=== PATIENT | male | born 1935 | race Caucasian/White ===

== ENCOUNTER 2017-12-03 21:17 | Inpatient (IN) | payer OTHER, MEDICAID ==
[~2017-12-03] VITALS: Ht 167.6 cm; Wt 54.4 kg
[2017-12-03 21:17] VITALS: BP_SYST 159
[2017-12-03] MEDS ORDERED: ACETAMINOPHEN 500 MG TABLET PO ONE (21:30)
[2017-12-03] MEDS ORDERED: NACL 0.9% 1,000 ML IV ONE ×2 (21:30→22:30)
[2017-12-03] MEDS ORDERED: IPRATROPIUM/ALBUTEROL SULFATE 3 ML AMPUL.NEB INH ONE (21:30)
[2017-12-03 21:44] LABS: HEMATOCRIT 39.2 % (36-54); MEAN CORPUSCULAR HEMOGLOBIN 31 pg (27-31); MEAN CORPUSCULAR HGB CONC 33 % (32-36); MEAN CORPUSCULAR VOLUME 94 fL (79.0-98.0); PLATELET COUNT (AUTO) 261 K/uL (130-430); RED BLOOD CELL COUNT(AUTO) 4.18 MIL/uL (4.2-6.2); RED CELL DISTRIBUTION WIDTH 14.3 % (9.0-15.0); WHITE BLOOD COUNT (AUTO) 10.7 K/uL (4.8-10.8)
[2017-12-03 21:53] LABS: ANION GAP 13 (5-15); CALCIUM 8.7 mg/dL (8.4-11.0); CHLORIDE 101 mmol/L (98-107); CREATININE 1.92 mg/dL (0.55-1.30); GLUCOSE 157 mg/dL (70-99); SODIUM SERUM 135 mmol/L (136-145); UREA NITROGEN, BLOOD 42 mg/dL (8-21)
[2017-12-03 22:02] LABS: ALANINE AMINOTRANSFERASE 10 U/L (12-78); ALBUMIN 2.7 g/dL (3.4-4.8); ASPARTATE AMINOTRANSFERASE 12 U/L (10-37); TOTAL BILIRUBIN 0.9 mg/dL (0.0-1.0)
[2017-12-03 22:08] LABS: BAND % (MANUAL) 5 % (0-6); BASOPHILS % (MANUAL) 0 % (0-2); EOSINOPHILS % (MANUAL) 0 % (0-7); LYMPHOCYTES % (MANUAL) 8 % (20-46); MONOCYTES % (MANUAL) 4 % (0-11)
[2017-12-03] MEDS ORDERED: SIMETHICONE 80 MG TAB.CHEW PO PRN (23:00)
[2017-12-03] MEDS ORDERED: ACETAMINOPHEN 325 MG TABLET PO PRN (23:00)
[2017-12-03] MEDS ORDERED: MORPHINE 2 MG/ML INJ. SYRINGE IVP PRN (23:00)
[2017-12-03] MEDS ORDERED: hydrALAZINE HCL 20 MG/ML VIAL IVP PRN (23:00)
[2017-12-03] MEDS ORDERED: LORazepam 2 MG/ML VIAL IVP PRN (23:00)
[2017-12-03] MEDS ORDERED: HYDROcodone/ACETAMIN 10-325 MG TAB PO PRN (23:00)
[2017-12-03] MEDS ORDERED: PIPERACILLIN/TAZOBACTAM 2.25 GM in NS 50 ML IV ONE (23:00)
[2017-12-03] MEDS ORDERED: ONDANSETRON HCL 4 MG/2 ML VIAL IVP PRN (23:00)
[2017-12-03] MEDS ORDERED: BISACODYL 10 MG/SUPPOSITORY RC PRN (23:00)
[2017-12-03] MEDS ORDERED: POTASSIUM CHLORIDE 20 MEQ TAB.PRT.SR PO PRN (23:00)
[2017-12-03] MEDS ORDERED: IPRATROPIUM/ALBUTEROL SULFATE 3 ML AMPUL.NEB INH PRN (23:00)
[2017-12-03] MEDS ORDERED: ZOLPIDEM TARTRATE 5 MG TABLET PO PRN (23:00)
[2017-12-03 23:13] LABS: BILIRUBIN,URINE 2+ (NEGATIVE); BLOOD, URINE NEGATIVE (NEGATIVE); CLARITY/URINE SLIGHTLY CLOUDY (CLEAR); COLOR,URINE YELLOW (YELLOW); GLUCOSE,URINE NEGATIVE (NEGATIVE); KETONES,URINE TRACE (NEGATIVE); LEUKOCYTE ESTERASE ,URINE NEGATIVE (NEGATIVE); NITRITE, URINE NEGATIVE (NEGATIVE); PH,URINE 5.5 (5.0-8.0); PROTEIN URINE 1+ (NEGATIVE)
[2017-12-03 23:15] LABS: BARBITURATE, URINE NEGATIVE (NEG <=200); BENZODIAZEPINE, URINE NEGATIVE (NEG <=150); CANNABINOID, URINE NEGATIVE (NEG <=50); COCAINE, URINE NEGATIVE (NEG <=150); METHAMPHETAMINES SCREEN,URINE NEGATIVE (NEG <=500); OPIATE, URINE NEGATIVE (NEG <=100); PHENCYCLIDINE SCREEN,URINE NEGATIVE (NEG <=25); UR TRICYCLIC ANTIDEPRESSANTS NEGATIVE (NEG <=300); URINE AMPHETAMINE NEGATIVE (NEG <=500); URINE METHADONE NEGATIVE (NEG <=200); URINE OXYCODONE SCREEN NEGATIVE (NEG <=100); URINE PROPOXYPHENE SCREEN NEGATIVE (NEG <=300)
[2017-12-03 23:16] LABS: BACTERIA,URINE FEW /HPF (None Seen); COARSE GRANULAR CASTS,URINE 0-10 /LPF (None Seen); FINE GRANULAR CASTS,URINE 0-10 /LPF (None Seen); MUCUS,URINE 1+ /LPF (None Seen); RBC,URINE 0-3 /HPF (0-3); URINE AMORPHOUS URATE 4+ /HPF (None Seen)
[2017-12-03 23:31] VITALS: BP_SYST 114
[2017-12-03] MEDS ORDERED: FLU VACC QS 2017-18(36MOS+)/PF 0.5 ML/SYR SYRINGE I.M. PRN (23:45)
[2017-12-04] MEDS: NACL 0.9% 1,000 ML IV SCH ×2 (00:02→10:23)
[2017-12-04] MEDS: IPRATROPIUM/ALBUTEROL SULFATE 3 ML AMPUL.NEB INH SCH ×7 (00:05→23:00)
[2017-12-04 00:23] VITALS: BP_SYST 159
[2017-12-04] MEDS ORDERED: PIPERACILLIN/TAZOBACTAM 2.25 GM VIAL IV ONE (00:43)
[2017-12-04] MEDS: BUDESONIDE 0.5 MG/2 ML AMPUL.NEB INH SCH ×2 (07:00→20:00)
[2017-12-04 07:36] LABS: FREE T4 (FREE THYROXINE) 0.9 ng/dL (0.6-1.6); PHOSPHORUS 2.2 mg/dL (2.7-4.5); THYROID STIMULATING HORMONE 0.55 uIu/mL (0.34-4.82)
[2017-12-04 08:00] VITALS: BP_SYST 130
[2017-12-04] MEDS: DOCUSATE SODIUM 100 MG CAPSULE PO SCH ×3 (08:12→20:14)
[2017-12-04] MEDS ORDERED: AZITHROMYCIN 250 MG TABLET PO ONE (10:45)
[2017-12-04] MEDS ORDERED: cefTRIAXone 1 GM in D5W 50 ML IV ONE (11:00)
[2017-12-04] MEDS ORDERED: BENZOCAINE/MENTHOL 1 EACH LOZENGE MM PRN (11:00)
[2017-12-04 11:20] VITALS: BP_SYST 111
[2017-12-04 15:21] VITALS: BP_SYST 103
[2017-12-04 20:10] VITALS: BP_SYST 131
[2017-12-05 00:01] VITALS: BP_SYST 133
[2017-12-05] MEDS: IPRATROPIUM/ALBUTEROL SULFATE 3 ML AMPUL.NEB INH SCH ×6 (03:00→23:05)
[2017-12-05 05:06] LABS: T4 (THYROXINE) 5.1 ug/dL (4.5-12.0)
[2017-12-05 06:18] LABS: HEMOGLOBIN A1C 5.2 % (4.8-5.6)
[2017-12-05 06:40] LABS: HEMATOCRIT 33.4 % (36-54); HEMOGLOBIN 11.1 g/dL (14.0-18.0); MEAN CORPUSCULAR HEMOGLOBIN 32 pg (27-31); MEAN CORPUSCULAR HGB CONC 33 % (32-36); MEAN CORPUSCULAR VOLUME 95 fL (79.0-98.0); PLATELET COUNT (AUTO) 282 K/uL (130-430); RED CELL DISTRIBUTION WIDTH 14.8 % (9.0-15.0); WHITE BLOOD COUNT (AUTO) 11.4 K/uL (4.8-10.8)
[2017-12-05] MEDS: BUDESONIDE 0.5 MG/2 ML AMPUL.NEB INH SCH ×2 (07:00→20:19)
[2017-12-05 07:01] LABS: ALANINE AMINOTRANSFERASE 11 U/L (12-78); ALBUMIN 2.2 g/dL (3.4-4.8); ANION GAP 10 (5-15); ASPARTATE AMINOTRANSFERASE 15 U/L (10-37); CALCIUM 8.7 mg/dL (8.4-11.0); CHLORIDE 107 mmol/L (98-107); CREATININE 1.42 mg/dL (0.55-1.30); GLUCOSE 95 mg/dL (70-99); PHOSPHORUS 2.9 mg/dL (2.7-4.5); POTASSIUM 3.4 mmol/L (3.5-5.1); SODIUM SERUM 139 mmol/L (136-145); TOTAL BILIRUBIN 0.5 mg/dL (0.0-1.0); UREA NITROGEN, BLOOD 29 mg/dL (8-21)
[2017-12-05] MEDS: AZITHROMYCIN 250 MG TABLET PO SCH (08:25)
[2017-12-05] MEDS: DOCUSATE SODIUM 100 MG CAPSULE PO SCH ×2 (08:27→20:35)
[2017-12-05] MEDS: cefTRIAXone 1 GM in D5W 50 ML IV SCH (08:27)
[2017-12-05 09:12] LABS: BAND % (MANUAL) 3 % (0-6); LYMPHOCYTES % (MANUAL) 10 % (20-46); MONOCYTES % (MANUAL) 8 % (0-11)
[2017-12-05 09:13] LABS: BASOPHILS % (MANUAL) 0 % (0-2); EOSINOPHILS % (MANUAL) 1 % (0-7)
[2017-12-05 09:48] VITALS: BP_SYST 114
[2017-12-05] MEDS ORDERED: POTASSIUM CHLORIDE 10 MEQ TAB.PRT.SR PO ONE (11:00)
[2017-12-05 12:37] VITALS: BP_SYST 121
[2017-12-05 16:08] VITALS: BP_SYST 148
[2017-12-05 20:00] VITALS: BP_SYST 138
[2017-12-06 00:27] VITALS: BP_SYST 137
[2017-12-06 06:49] LABS: BASOPHILS % (AUTO) 0.2 % (0.0-2.0); EOSINOPHILS # (AUTO) 0.3 K/uL (0.0-0.4); EOSINOPHILS % (AUTO) 2.5 % (0.0-4.0); HEMATOCRIT 33.9 % (36-54); HEMOGLOBIN 11.2 g/dL (14.0-18.0); LYMPHOCYTES % (AUTO) 9.8 % (20.5-51.5); MEAN CORPUSCULAR HEMOGLOBIN 32 pg (27-31); MEAN CORPUSCULAR HGB CONC 33 % (32-36); MEAN CORPUSCULAR VOLUME 96 fL (79.0-98.0); MONOCYTES # (AUTO) 0.8 K/uL (0.0-1.0); MONOCYTES % (AUTO) 7.8 % (1.7-9.3); NEUTROPHILS # (AUTO) 8.4 K/uL (1.8-7.7); NEUTROPHILS % (AUTO) 79.7 % (40.0-70.0); PLATELET COUNT (AUTO) 359 K/uL (130-430); RED BLOOD CELL COUNT(AUTO) 3.54 MIL/uL (4.2-6.2); RED CELL DISTRIBUTION WIDTH 14.7 % (9.0-15.0); WHITE BLOOD COUNT (AUTO) 10.5 K/uL (4.8-10.8)
[2017-12-06 07:07] LABS: ANION GAP 9 (5-15); CALCIUM 8.9 mg/dL (8.4-11.0); CHLORIDE 109 mmol/L (98-107); GLUCOSE 110 mg/dL (70-99); POTASSIUM 3.4 mmol/L (3.5-5.1); SODIUM SERUM 143 mmol/L (136-145); UREA NITROGEN, BLOOD 22 mg/dL (8-21)
[2017-12-06] MEDS: BUDESONIDE 0.5 MG/2 ML AMPUL.NEB INH SCH (07:11)
[2017-12-06] MEDS: IPRATROPIUM/ALBUTEROL SULFATE 3 ML AMPUL.NEB INH SCH ×2 (07:11→11:29)
[2017-12-06] MEDS: cefTRIAXone 1 GM in D5W 50 ML IV SCH (08:33)
[2017-12-06] MEDS: DOCUSATE SODIUM 100 MG CAPSULE PO SCH (08:33)
[2017-12-06] MEDS: AZITHROMYCIN 250 MG TABLET PO SCH (08:34)
[2017-12-06 09:48] VITALS: BP_SYST 130
[2017-12-06 11:40] VITALS: BP_SYST 166
[2017-12-06 11:44] VITALS: BP_SYST 141
[2017-12-06] MEDS ORDERED: ALBU8.5H8 INH (12:53)
[2017-12-06] MEDS ORDERED: LEVO500T20 PO (12:53)
[2017-12-06 15:17] VITALS: BP_SYST 141
== END 2017-12-06 15:45 | disposition home or self-care (01) | DRG 871 ==
LOC: SED 21:17 → SMU 22:51
PROVIDERS: ADMIT Family Medicine; ATTEND Family Medicine
DX: A41.9 Sepsis, unspecified organism (principal); N17.0 Acute kidney failure with tubular necrosis; J18.9 Pneumonia, unspecified organism; J44.0 Chronic obstructive pulmonary disease with (acute) lower respiratory infection; J44.1 Chronic obstructive pulmonary disease with (acute) exacerbation; N39.0 Urinary tract infection, site not specified; E78.5 Hyperlipidemia, unspecified; I10 Essential (primary) hypertension; F17.210 Nicotine dependence, cigarettes, uncomplicated; Z98.42 Cataract extraction status, left eye; Z98.41 Cataract extraction status, right eye
CPT/HCPCS: 36415; 71045; 80048; 80053; 80061; 80307; 81000-TC; 82150-TC; 83036; 83605; 83690-TC; 83735-TC; 83880; 84100-TC; 84436; 84439; 84443-TC; 84479; 84484; 85007; 85025; 85027; 86710; 87040-TC; 93005; 94640; 94760; 96361; 96365; 97530-GP; 99285; J0696; J1956; J2543; J7030; J7060; Q0144; Q2037

== ENCOUNTER 2021-04-19 01:16 | Inpatient (IN) | payer OTHER, MEDICAID, SELFPAY ==
[2021-04-19] VITALS (12 sets, daily range): BP systolic 136–172
[~2021-04-19] VITALS: Ht 167.6 cm; Wt 50.9 kg
[~2021-04-19 01:16] MED LIST: ALBU8.5H8 INH; LEVO500T20 PO
--- NOTE | 2021-04-19 01:16 | NUR ---
Placed in room 1. Placed on secured entrance monitor, blood pressure machine and pulse oximeter. To gown for exam. Side rails up. Cervical collar placed in ER. Report given to self. ER Dr. Colon at bedside examining patient.
--- NOTE | 2021-04-19 01:23 | NUR ---
EKG performed at by Prateek Bal RN. Physician given copy of EKG for review.
--- NOTE | 2021-04-19 01:25 | NUR ---
Per MD Colon EKG reveals "Complete Bundle Branch Block" paced pads placed.
--- NOTE | 2021-04-19 01:36 | NUR ---
# 18 gauge angiocath placed to RAC. Use of asceptic technique. Opsite placed over site. Blood return noted. Blood for lab drawn from site. Flushed with 10 cc of normal saline. No evidence of infiltration noted. Patient tolerated well. Patient had arrived via EMS w/ 18 g to LAC (patent and intact).
[2021-04-19 01:51] LABS: BASOPHILS # (AUTO) 0.1 K/uL (0.0-0.2); BASOPHILS % (AUTO) 0.9 % (0.0-2.0); EOSINOPHILS # (AUTO) 0.1 K/uL (0.0-0.4); EOSINOPHILS % (AUTO) 0.9 % (0.0-4.0); HEMATOCRIT 36.6 % (36-54); HEMOGLOBIN 12.1 g/dL (14.0-18.0); LYMPHOCYTES # (AUTO) 1.3 K/uL (1.0-5.5); LYMPHOCYTES % (AUTO) 12.9 % (20.5-51.5); MEAN CORPUSCULAR HEMOGLOBIN 32 pg (27-31); MEAN CORPUSCULAR HGB CONC 33 % (32-36); MEAN CORPUSCULAR VOLUME 96 fL (79.0-98.0); MONOCYTES # (AUTO) 0.5 K/uL (0.0-1.0); MONOCYTES % (AUTO) 5.4 % (1.7-9.3); NEUTROPHILS # (AUTO) 7.8 K/uL (1.8-7.7); NEUTROPHILS % (AUTO) 79.9 % (40.0-70.0); PLATELET COUNT (AUTO) 192 K/uL (130-430); RED BLOOD CELL COUNT(AUTO) 3.81 MIL/uL (4.2-6.2); RED CELL DISTRIBUTION WIDTH 20.6 % (9.0-15.0); WHITE BLOOD COUNT (AUTO) 9.7 K/uL (4.8-10.8)
[2021-04-19 02:02] LABS: ANION GAP 15 (5-15); CALCIUM 8.7 mg/dL (8.4-11.0); CHLORIDE 109 mmol/L (98-107); CREATININE 1.83 mg/dL (0.55-1.30); GLUCOSE 131 mg/dL (70-99); POTASSIUM 4.3 mmol/L (3.5-5.1); SODIUM SERUM 146 mmol/L (136-145); UREA NITROGEN, BLOOD 23 mg/dL (8-21)
[2021-04-19 02:05] LABS: PROTHROMBIN TIME 10.6 SECS (9.5-12.5)
[2021-04-19 02:07] LABS: ASPARTATE AMINOTRANSFERASE 23 U/L (10-37); TOTAL BILIRUBIN 1.1 mg/dL (0.0-1.0)
[2021-04-19 02:21] LABS: ALANINE AMINOTRANSFERASE 24 U/L (12-78); ALBUMIN 3.9 g/dL (3.4-4.8)
[2021-04-19 02:22] LABS: ALCOHOL, BLOOD < 3 mg/dL (<10)
--- NOTE | 2021-04-19 02:25 | NUR ---
Patient transported to radiology/CT via [facility] w/ account planner, accompanied by RN and CT.
--- NOTE | 2021-04-19 02:51 | NUR ---
Returned from radiology, back to [facility]. Reconnected to traffic monitor specialist. Patient resting quietly. No acute distress noted. Vital signs within normal range. Continue to monitor level of comfort.
--- NOTE | 2021-04-19 03:26 | NUR ---
pcxr done at bedside.
[2021-04-19] MEDS ORDERED: cefTRIAXone 1 GM VIAL ONE (04:29)
[2021-04-19] MEDS ORDERED: DIPH-TET-PERTUS Vaccine 0.5 ML VIAL (ADACEL) I.M. ONE (04:30)
[2021-04-19] MEDS ORDERED: hydrALAZINE HCL 20 MG/ML VIAL IVP ONE (04:30)
[2021-04-19] MEDS ORDERED: cefTRIAXone 1 GM in D5W 50 ML IV ONE (04:30)
--- NOTE | 2021-04-19 04:30 | NUR ---
Patient has a 1 cm laceration to occipital scalp. Dr. Colno applied aure using sterile technique. Edges well approximated. Site cleansed with sterile wated and betadine. no bleeding, no Dressing of applied to site. No bleeding noted. Pt tolerated well.
--- NOTE | 2021-04-19 04:41 | NUR ---
Medicated w/ tetanus im, hydralazine 10mg ivp for elevated b/p and rocephin 1gm ivpb per MD orders. no s/s of infiltration at this time at iv sites. Will cont to monitor and observe for any adverse reaction. Bed to low position sr up. continue to monitor.
[2021-04-19 05:11] LABS: BILIRUBIN,URINE NEGATIVE (NEGATIVE); BLOOD, URINE 1+ (NEGATIVE); CLARITY/URINE CLEAR (CLEAR); COLOR,URINE YELLOW (YELLOW); GLUCOSE,URINE NEGATIVE (NEGATIVE); KETONES,URINE NEGATIVE (NEGATIVE); LEUKOCYTE ESTERASE ,URINE NEGATIVE (NEGATIVE); NITRITE, URINE NEGATIVE (NEGATIVE); PROTEIN URINE 1+ (NEGATIVE); UROBILINOGEN,URINE 0.2 (0.2-1.0)
[2021-04-19 05:13] LABS: BACTERIA,URINE FEW /HPF (None Seen); WBC,URINE 0-3 /HPF (0-3)
[2021-04-19 05:20] LABS: BARBITURATE, URINE NEGATIVE (NEG <=200); BENZODIAZEPINE, URINE NEGATIVE (NEG <=150); CANNABINOID, URINE NEGATIVE (NEG <=50); COCAINE, URINE NEGATIVE (NEG <=150); METHAMPHETAMINES SCREEN,URINE NEGATIVE (NEG <=500); OPIATE, URINE NEGATIVE (NEG <=100); PHENCYCLIDINE SCREEN,URINE NEGATIVE (NEG <=25); UR TRICYCLIC ANTIDEPRESSANTS NEGATIVE (NEG <=300); URINE AMPHETAMINE NEGATIVE (NEG <=500); URINE METHADONE NEGATIVE (NEG <=200); URINE OXYCODONE SCREEN NEGATIVE (NEG <=100); URINE PROPOXYPHENE SCREEN NEGATIVE (NEG <=300)
[2021-04-19] MEDS ORDERED: BACITRACIN 1 GM OINT TP ONE (05:21)
[2021-04-19] MEDS ORDERED: LORazepam 2 MG/ML VIAL ONE (05:43)
--- NOTE | 2021-04-19 05:45 | NUR ---
patient w/ increased agitation and restlessness. Per MD patient to be medicated w/ ativan 1mg ivp. Medicated per MD orders. Will cont to monitor and observe for any adverse reaction. Bed to low position sr up. continue to monitor.
--- NOTE | 2021-04-19 06:35 | NUR ---
Patient resting quietly. No acute distress noted. Vital signs within normal range.
--- NOTE | 2021-04-19 07:21 | NUR ---
Dr. Schneider in to see patient.
[2021-04-19] MEDS ORDERED: NACL 0.9% 1,000 ML IV SCH (07:45)
[2021-04-19] MEDS ORDERED: ACETAMINOPHEN 325 MG TABLET PO PRN ×2 (07:45→08:00)
--- NOTE | 2021-04-19 08:06 | NUR ---
ASSUMED CARE FOR PATIENT FROM MICHAEL CINTRON
[2021-04-19] MEDS ORDERED: LORazepam 2 MG/ML VIAL IVP ONE (08:15)
--- NOTE | 2021-04-19 08:20 | NUR ---
PT REMOVED HIS RIGHT #18 RIGHT AC IV ACCESS
--- NOTE | 2021-04-19 08:20 | NUR ---
Dr. Burns in to see patient.
--- NOTE | 2021-04-19 08:30 | NUR ---
CONSULT CARDIO. CONSULTING MD: DR. THACKER PERSON NOTIFIED: DR. THACKER ORDERED BY: DR. DOZIER
--- NOTE | 2021-04-19 08:30 | NUR ---
CONSULT PULMO. CONSULTING MD: DR. RYAN PERSON NOTIFIED: DR. RYAN ORDERED BY: DR. DOZIER
[2021-04-19 09:44] LABS: BASOPHILS # (AUTO) 0.1 K/uL (0.0-0.2); BASOPHILS % (AUTO) 1.1 % (0.0-2.0); EOSINOPHILS # (AUTO) 0.1 K/uL (0.0-0.4); EOSINOPHILS % (AUTO) 0.6 % (0.0-4.0); HEMATOCRIT 34.4 % (36-54); HEMOGLOBIN 11.5 g/dL (14.0-18.0); LYMPHOCYTES # (AUTO) 1.1 K/uL (1.0-5.5); LYMPHOCYTES % (AUTO) 12.3 % (20.5-51.5); MEAN CORPUSCULAR HEMOGLOBIN 31 pg (27-31); MEAN CORPUSCULAR HGB CONC 33 % (32-36); MEAN CORPUSCULAR VOLUME 94 fL (79.0-98.0); MONOCYTES # (AUTO) 0.7 K/uL (0.0-1.0); NEUTROPHILS # (AUTO) 7.1 K/uL (1.8-7.7); PLATELET COUNT (AUTO) 164 K/uL (130-430); RED BLOOD CELL COUNT(AUTO) 3.68 MIL/uL (4.2-6.2); RED CELL DISTRIBUTION WIDTH 20.3 % (9.0-15.0); WHITE BLOOD COUNT (AUTO) 9.1 K/uL (4.8-10.8)
[2021-04-19 10:09] LABS: ALANINE AMINOTRANSFERASE 21 U/L (12-78); ALBUMIN 3.3 g/dL (3.4-4.8); ANION GAP 13 (5-15); ASPARTATE AMINOTRANSFERASE 21 U/L (10-37); CALCIUM 8.4 mg/dL (8.4-11.0); CHLORIDE 110 mmol/L (98-107); CREATININE 1.62 mg/dL (0.55-1.30); GLUCOSE 105 mg/dL (70-99); SODIUM SERUM 146 mmol/L (136-145); TOTAL BILIRUBIN 1.1 mg/dL (0.0-1.0); UREA NITROGEN, BLOOD 22 mg/dL (8-21)
[2021-04-19] MEDS: NACL 0.9% 1,000 ML IV SCH ×2 (12:10→20:47)
--- NOTE | 2021-04-19 13:50 | NUR ---
Transfer to ICU4 via ACLS protocol. Licensed nurse present. IV present no signs or symptoms of infiltration.
--- NOTE | 2021-04-19 14:00 | NUR ---
ADMISSION NOTE RECEIVED PT VIA RINKU, LETHARGIC, TRANSFERRED TO THE BED, ON ROOM AIR, CONNECTED PT TO BARREL ENDSHAKE ADJUSTER, 3RD DEGREE HEART BLOCK, SALINE LOCK IN LEFT A/C, AND IV IN LEFT ARM, WITH NS INFUSING. PT INCONTINENT, GOOD PERINEAL CARE DONE, SHEETS CHANGED. RIGHT ELBOW SKIN TEAR AND SCALP WITH STAPLE WIRES.
--- NOTE | 2021-04-19 14:30 | NUR ---
CONSULT NEPHRO. CONSULTING MD: DR. MORALES PERSON NOTIFIED: VIRA DIALED: [phone] ORDERED BY: DR. DOZIER
[2021-04-19] MEDS: DOPamine PREMIX 250 ML IV PRN (15:29)
--- NOTE | 2021-04-19 18:30 | NUR ---
YOUNG CATH: # 16 FR Young catheter with 10 cc bulb inserted with use of sterile technique. Bulb inflated with 10 cc sterile water. Immediate return of 50 cc urine noted. Bedside drainage bag placed below level of bladder. Pt tolerated procedure well.
--- NOTE | 2021-04-19 19:30 | NUR ---
Opening Note Received report from AM shift using SBAR approach.
--- NOTE | 2021-04-19 19:55 | NUR ---
PAGED FOR ORDERS DIALED: [phone] SPOKE TO: JOSE
[2021-04-19] MEDS ORDERED: cefTRIAXone 1 GM IVPB PREMIX 50 ML IV ONE (21:14)
[2021-04-19] MEDS: cefTRIAXone 1 GM IVPB PREMIX 50 ML IV SCH ×2 (21:27→21:40)
--- NOTE | 2021-04-19 22:30 | NUR ---
patient is pulling out lines and getting restless.
--- NOTE | 2021-04-19 23:22 | NUR ---
Called Dr. Schneider and reported patient's condition. Restraints ordered.
[2021-04-20] VITALS (24 sets, daily range): BP systolic 132–168
[2021-04-20] MEDS: NACL 0.9% 1,000 ML IV SCH ×2 (03:57→15:03)
--- NOTE | 2021-04-20 06:34 | NUR ---
Nutrition Update Parviz Scale 12 noted. Pt admitted for Heart block Diet: Clear liquid BMI: 17.6 kg/m2 RD to follow per nutrition care standards.
[2021-04-20 06:39] LABS: BASOPHILS # (AUTO) 0.1 K/uL (0.0-0.2); BASOPHILS % (AUTO) 0.4 % (0.0-2.0); HEMOGLOBIN 11.7 g/dL (14.0-18.0); LYMPHOCYTES # (AUTO) 0.8 K/uL (1.0-5.5); LYMPHOCYTES % (AUTO) 6.5 % (20.5-51.5); MEAN CORPUSCULAR HEMOGLOBIN 32 pg (27-31); MEAN CORPUSCULAR HGB CONC 34 % (32-36); MEAN CORPUSCULAR VOLUME 94 fL (79.0-98.0); MONOCYTES # (AUTO) 0.8 K/uL (0.0-1.0); NEUTROPHILS # (AUTO) 10.4 K/uL (1.8-7.7); NEUTROPHILS % (AUTO) 86.1 % (40.0-70.0); PLATELET COUNT (AUTO) 165 K/uL (130-430); RED BLOOD CELL COUNT(AUTO) 3.71 MIL/uL (4.2-6.2); RED CELL DISTRIBUTION WIDTH 20.2 % (9.0-15.0)
[2021-04-20 06:40] LABS: ALANINE AMINOTRANSFERASE 18 U/L (12-78); ALBUMIN 3.2 g/dL (3.4-4.8); ANION GAP 14 (5-15); ASPARTATE AMINOTRANSFERASE 31 U/L (10-37); CALCIUM 8.3 mg/dL (8.4-11.0); CHLORIDE 109 mmol/L (98-107); CREATININE 1.49 mg/dL (0.55-1.30); GLUCOSE 112 mg/dL (70-99); POTASSIUM 3.6 mmol/L (3.5-5.1); SODIUM SERUM 143 mmol/L (136-145); TOTAL BILIRUBIN 0.9 mg/dL (0.0-1.0); UREA NITROGEN, BLOOD 21 mg/dL (8-21)
[2021-04-20 06:48] LABS: WHITE BLOOD COUNT (AUTO) 12.1 K/uL (4.8-10.8)
--- NOTE | 2021-04-20 12:08 | NUR ---
SS notes CAMPUS MANAGER received a referral from Dr. Schneider to see pt. . Pt was found face down on the sidewalk. Pt. may reside in a motel and could be homeless. Pt. also needs a Picc and it is unknown who the next of kin is. CAMPUS MANAGER called the listed emergency contact for dorene Seeer, , but the phone just kept ringing. CAMPUS MANAGER called the number listed under patients listed address, , but phone just kept ringing. Addendum: 04/20/21 at 1246 by Darlyn TEAGUE SS notes CAMPUS MANAGER received a call back from the brothers, phone number, but it was from a woman, Nya Rivera who stated this is her phone number, she does not know any Jack Bocanegra. CAMPUS MANAGER called HCP, Demetria who stated pt. has Dr. Casas as the PCP, [phone]. CAMPUS MANAGER called and left a message with the Drs. oquendo in hopes of finding a next of kin, contact. CAMPUS MANAGER will continue to try. Addendum: 04/20/21 at 1441 by Darlyn C. Urban CAMPUS MANAGER SS notes CAMPUS MANAGER was able to reach electrician third at Dr. Casas's office. CAMPUS MANAGER stated since HCP listed Dr. Bey as the PCP, might they have any contacts. Loading Shovel Oiler stated although Dr. Bey is listed as PCP, they have not ever seen this pt. This pt. has never made appointments. They did have one contact listed, Charles Vanegas, . CAMPUS MANAGER called this number twice, no answer and unable to leave a message due to the mailbox being full. CAMPUS MANAGER will continue to try reaching out.
[2021-04-20 12:35] LABS: INR 1.1 (0.80-1.20); PROTHROMBIN TIME 11.6 SECS (9.5-12.5)
[2021-04-20] MEDS: hydrALAZINE HCL 20 MG/ML VIAL IVP PRN ×2 (15:03→23:50)
--- NOTE | 2021-04-20 19:25 | NUR ---
OPENING NOTE Received SBAR report from off coming RN for continuity of care. Pt laying in bed with eyes closed. No s/s of distress noted. Pt on 2L of O2 via NC, oxygen saturations maintained above 90%. Dopamine gtt infusing @ 6 mcg/kg/min. Javed catheter in place and draining to gravity. Call light within reach, bed locked and in lowest position, safety precautions in place.
[2021-04-20] MEDS ORDERED: PIPERACILLIN/TAZO 2.25G/DEX-IS 50 ML IV ONE (19:30)
[2021-04-20] MEDS: DOPamine PREMIX 250 ML IV PRN (19:47)
--- NOTE | 2021-04-20 20:30 | NUR ---
Pt alert and awake laying in bed, alert to self and place. Pt aware he is in the hospital but he is forgetful and becomes confused. Provided redirection and orientation. Bilateral soft wrist restraints in place, assessed skin condition and need. Pt attempting to remove lines and Javed catheter. Dopamine gtt infusing @ 9 mcg/kg/min. Javed catheter in place and draining to gravity. Turned and repositioned, pt tolerated well. Call light within reach, safety precautions in place.
--- NOTE | 2021-04-20 23:40 | NUR ---
Pt agitated unredirectable attempting to remove lines and swinging legs over side rails. Provided redirection.
[2021-04-21] VITALS (24 sets, daily range): BP systolic 93–177
[2021-04-21] MEDS: NACL 0.9% 1,000 ML IV SCH ×3 (00:45→20:32)
--- NOTE | 2021-04-21 00:56 | NUR ---
PAGED FOR ORDERS DIALED: [phone] SPOKE TO: AGUEDA
--- NOTE | 2021-04-21 02:15 | NUR ---
Pt agitated unredirectable attempting to remove lines and swinging legs over side rails.
--- NOTE | 2021-04-21 02:28 | NUR ---
PAGED FOR ORDERS SECOND ATTEMPT DIALED: [phone] SPOKE TO: PRICILLA
[2021-04-21] MEDS: PIPERACILLIN/TAZO 2.25G/DEX-IS 50 ML IV SCH ×4 (02:53→20:32)
--- NOTE | 2021-04-21 04:00 | NUR ---
Provided full bed bath with CHG and full linen change. Pt tolerated well.
[2021-04-21] MEDS ORDERED: LORazepam 2 MG/ML VIAL IVP ONE ×2 (05:00→21:15)
[2021-04-21 05:52] LABS: ALANINE AMINOTRANSFERASE 23 U/L (12-78); ANION GAP 14 (5-15); ASPARTATE AMINOTRANSFERASE 45 U/L (10-37); CALCIUM 8.1 mg/dL (8.4-11.0); CHLORIDE 109 mmol/L (98-107); CREATININE 1.63 mg/dL (0.55-1.30); GLUCOSE 105 mg/dL (70-99); POTASSIUM 3.7 mmol/L (3.5-5.1); SODIUM SERUM 144 mmol/L (136-145); THYROID STIMULATING HORMONE 1.08 uIu/mL (0.36-3.74); TOTAL BILIRUBIN 1.1 mg/dL (0.0-1.0); UREA NITROGEN, BLOOD 25 mg/dL (8-21)
[2021-04-21 06:26] LABS: BASOPHILS # (AUTO) 0.1 K/uL (0.0-0.2); BASOPHILS % (AUTO) 0.5 % (0.0-2.0); LYMPHOCYTES # (AUTO) 0.4 K/uL (1.0-5.5); LYMPHOCYTES % (AUTO) 3.7 % (20.5-51.5); MEAN CORPUSCULAR HEMOGLOBIN 32 pg (27-31); MEAN CORPUSCULAR HGB CONC 33 % (32-36); MEAN CORPUSCULAR VOLUME 96 fL (79.0-98.0); MONOCYTES # (AUTO) 0.7 K/uL (0.0-1.0); MONOCYTES % (AUTO) 6.3 % (1.7-9.3); NEUTROPHILS # (AUTO) 10.4 K/uL (1.8-7.7); NEUTROPHILS % (AUTO) 89.5 % (40.0-70.0); PLATELET COUNT (AUTO) 136 K/uL (130-430); RED BLOOD CELL COUNT(AUTO) 3.45 MIL/uL (4.2-6.2); RED CELL DISTRIBUTION WIDTH 19.7 % (9.0-15.0); WHITE BLOOD COUNT (AUTO) 11.6 K/uL (4.8-10.8)
--- NOTE | 2021-04-21 07:20 | NUR ---
CLOSING NOTE Endorsed SBAR report to oncoming RN for continuity of care. Pt laying in bed with eyes closed. No s/s of distress noted. Dopamine gtt infusing @ 5 mcg/kg/min. Call light within reach, safety precautions in place.
--- NOTE | 2021-04-21 07:30 | NUR ---
Opening Note Received plan of care via sbar from endorsing RN.
--- NOTE | 2021-04-21 08:25 | NUR ---
Dr. Burns at bedside. Provided patient update. Discussed plan of care and to titrate down on dopamine drip. Received orders to titrate dopamin drip 1 mcg every 2 hours. In addition, bedside swallow eval conducted with physician at bedside. Patient was unwilling to try. MD requested a swallow eval completed.
--- NOTE | 2021-04-21 09:47 | NUR ---
SABINO MORALES. LEFT A VOICE MESSAGE FOR BRIE. DIALED: [phone]
--- NOTE | 2021-04-21 09:48 | NUR ---
Dr. Allison at bedside. Provided patient update. Received order to complete CT of pelvis and abd for hydronephrosis found during ultra sound.
--- NOTE | 2021-04-21 10:59 | NUR ---
Dietitian Recommendations *Recommend: swallow eval. *Recommend: advance diet per ST rec. (target diet: Cardiac diet, Butch BID) Please see Nutritional Assessment for details. SANIYA, RD
--- NOTE | 2021-04-21 14:45 | NUR ---
WOUND EVALUATION: Late note for 04/21/2021 at 1445 secondary to patient care. Wound Consult received from Dr. Benítez. Thank you, Dr. Benítez, for the consult. Patient received in a Festus Bed, awake, alert, confused. Patient is unable to turn in bed independently. Parviz Score is a 13. Past Medical History: COPD, Asthma, Hypertension, Renal Disease, Hyperlipidemia. Patient was admitted after falling down after a syncopal episode where he sustained an occipital laceration. Recent Labs: WBC 11.6, RBC 3.45, hemoglobin 11.0, hematocrit 33.0, chloride 109, BUN 25, creatinine 1.63, glucose 105, calcium 8.1, total bilirubin 1.1, AST 45, BNP 2560, albumin 3.0, PTT 25.6. Microbiology: MRSA screen results negative. Intrinsic factors that delay wound healing: COPD, Asthma. Extrinsic factors that delay wound healing: Decreased mobility. Wound Assessment: 1. Posterior Scalp: Laceration, present on admission. Wound bed has sutures, measures 5.0 cm x 3.0 cm, and is approximated. No odor, no drainage. Yuliya-wound intact. Surrounding tissue has yellow tissue, with scant serous drainage, and measures 3.5 cm x 0.5 cm. Recommend: Cleanse wound with normal saline. Apply sure prep to yuliya-wound. Cover with alginate dressing, then foam dressing. Perform wound care daily, and as needed for dressing soiling or dislodgement. 2. Left Lateral Forearm: Skin tear, present on admission. Skin tear site has 100% red tissue. No odor, scant sanguineous drainage. Periskin tear area intact skin tear measures 3.5 cm x 0.5 cm. Recommend: Cleanse wound with normal saline. Apply sure prep to yuliya-wound. Apply hydrogel to skin tear bed. Cover with foam dressing. Perform wound care daily, and as needed for dressing soiling or dislodgement. 3. Right Anterior Forearm: Two scars, present on admission. 4. Right Lateral Forearm: Skin tear, present on admission. Site now has dry black scab. No odor, no drainage. Periwound intact. Dry, stable. Scab measures 0.9 cm x 1.5 cm. Recommend: No dressings needed. Continue monitor sites every shift. 5. Buttocks/Lower Buttocks near Ischia: Blanchable redness, present on admission. Recommend: Cleanse involved areas with mild soap and water. Pat dry. Apply moisture barrier cream to involved areas. Perform site care 4 times daily and as needed for soiling. Also recommend: Reposition patient gzse-sf-xcco only every 2 hours with pillow support and off-load pressure areas with pillows for pressure re-distribution. Offload, elevate and float bilateral heels with pillows. Perform skin care and monitor skin integrity Q shift. Use moisture barrier cream on buttocks and other moisture susceptible areas QID and as needed for soiling. Place patient on a low air-loss mattress.
[2021-04-21] MEDS: DOPamine PREMIX 250 ML IV PRN (14:59)
--- NOTE | 2021-04-21 16:33 | NUR ---
SS notes ADMINISTRATIVE PROCESSOR called the operative supervisor station and was told pt. has a visitor. ADMINISTRATIVE PROCESSOR wanted to meet visitor. ADMINISTRATIVE PROCESSOR was still trying to gather info due to a referral made on pt. dated 04/[address] Schneider. ADMINISTRATIVE PROCESSOR met with pts. friend, China Palomino, . China stated he has known patient since at least 2007. Patient resides in an apartment complex 500 feet away from China's place of employment, corner store on [address]. China stated he and co-worker, Jared Landers, , have grown close to patient, watch after him, takes him to lunch and they have a chair for him at the store as patient would frequently visit and stay for hours. Both China and Jared help patient and write his monthly rent check. Pt. lives off of [address]. Both China and Jared would look for patient if they have not seen him for a couple of days and both know patient's brother Shahid who resides in [place]. Patient has another brother, Johnny who resides in [facility]. Brother, Jack Bocanegra recently passed in 2019 or perhaps 2020 as per China. Over the years, China and Jared have noticed a decline in patients health. Patient lives in the apartment complex listed on face sheet, [id number] [place] [address], has not , no children. China on two recent occasions, noticed pt. had not been at the corner store, so he and Jared would drive around looking for him. This last event, China went to pts. apt but still could not find pt. China continued to look, call local police stations, and checking other hospitals. When Covid erupted, China noticed patient grew depressed. China stated patient did not take good care of himself. When China would even mention going to the doctors, pt. was adamant and stated he would not go. Patient would buy his food at this corner store. As China stated, " this was not the best nutritious food". China stated pts. brother Shahid , is coming from [place], but details are unknown. China stated he is willing to become the DPOA, but ADMINISTRATIVE PROCESSOR explained to him the next of kin would most likely be a brother. As per China, Shahid and pt. would speak weekly. ADMINISTRATIVE PROCESSOR will try to call brother Shahid and FARNAZ for HCP, Demetria again.
--- NOTE | 2021-04-21 17:38 | NUR ---
S.T. SWALLOW EVAL SWALLOW EVAL COMPLETED. PT PRESENTS W/ GENERALLY FUNCTIONAL OROPHARYNGEAL SWALLOW FOR PUREE AND THIN/THICK LIQUIDS. NO S/S OF ASPIRATION. SEV PRE-ORAL DYSPHAGIA W/ POOR INTEREST FOR P.O. HIGH RISK FOR MALNUTRITION AND DEHYDRATION. REC: MAY UPGRADE TO PUREE DIET. THIN LIQUIDS OK. MONITOR FOR ADEQUATE ORAL INTAKE. NURSES VENUS AND PRAVIN NOTIFIED.
--- NOTE | 2021-04-21 19:15 | NUR ---
change of shift.pt.presents quiescent affect;calm,resting.pt.presents picc line;location:rt.bicept.intact;patent iv fluids infusing drip;dopamine infusing.dose rate:2.9mcq/kg/min.rate:6ml/hr.no c/o pain,nausea.pt.presents diaz cath intact;patent.general status stable.respiratory status stable;unlabored@room air.call light w/in access of the pt.
--- NOTE | 2021-04-21 20:00 | NUR ---
pt.assessed.v/s assessed values wnl.picc line intact;patent iv fluids infusing/dopamine drip infusing.note b/p status. diaz cath iintact;patent iv fluids infusing. no c/o pain,nausea.pt.assessed for cleanliness.pt.repositioned.i have offered the pt.food items pt.refused . general status stable.respiratory status stable;unlabored.02-sat%=93%@room air.call light placed w/in access of the pt.
--- NOTE | 2021-04-21 20:55 | NUR ---
PAGED FOR ORDERS DIALED: [phone] SPOKE TO: MEREDITH
--- NOTE | 2021-04-21 21:00 | NUR ---
HIGH ALERT NOTE: Called Dr. gilbert: back at identified within the medical roster to verify physician authenticity.pt./reted increads afgitatin/relessnes.i apprised pt's status. ativan:0.5mg ivp x1.
--- NOTE | 2021-04-21 21:15 | NUR ---
i have administered ativan:0.5mg ivp x1.to re-assess the pt/medication efficacy per protocol.
[2021-04-21] MEDS ORDERED: LORazepam 2 MG/ML VIAL ONE (21:17)
--- NOTE | 2021-04-21 21:45 | NUR ---
pt's affect status change.pt.presents increased agitation/restlessness.i have attempted to re-orient the pt./reposition. pt.remaines restless/agitated,inchorent.to continue to monitor the pt's general status. Addendum: 04/21/21 at 5738 by Jules Walters RN above note writtened@7p.
--- NOTE | 2021-04-21 22:00 | NUR ---
pt.assessed.v/s assessed values wnl.pt.presents quiescent affect;calm,somnolent.picc line intact iv fluids infusing.per flacc pain mgx pt.absent facial grimaces/body posturing.diaz cath intact;patent urine content present.pt.assessed for cleanliness. pt. repositioned.call light place w/in access of the pt.
[2021-04-22] VITALS (24 sets, daily range): BP systolic 140–166
--- NOTE | 2021-04-22 | NUR ---
pt.assessed.v/s assessed vaues w/in normal limits.picc line intact iv fluids infusing.diaz cath intact urine content present. per flacc pain mgx pt.absent facial grimaces/body posturing.pt.assessed for cleanliness.pt.repositioned.general status stable. respiratory status stable;unlabored;02-sat%=96%.call light placed w/in access of the pt.
--- NOTE | 2021-04-22 02:00 | NUR ---
pt.assessed.v/s assessed values note b/p status.picc line intact iv fluids infusing.i have administered zosyn;abx ivpb 0200a dose.per flacc pain mgh pt.absent facial grimaces/body posturing.pt.assessed for cleanliness.pt.repositioned.diaz cath intact patent urine content present.general status stable.respiratory status stable;02-sat%=96%.call light placed w/in access of the pt. Addendum: 04/22/21 at 0639 by Jules Walters RN restraints in placed skin /circulation wnl.
[2021-04-22] MEDS: PIPERACILLIN/TAZO 2.25G/DEX-IS 50 ML IV SCH ×5 (02:18→23:29)
--- NOTE | 2021-04-22 04:00 | NUR ---
pt.assessed.v/s assessed values wnl.note b/p status.picc line intact iv fluids/dopamine drip infusing.diaz cath intact urine content present.pt.assessed for cleanliness.pt.repositioned.general status stable.respiratory status stable;02-sat%=96%. per flacc pain mgx pt.absent facial grimaces/body posturing.call light placed w/in access of the pt. Addendum: 04/22/21 at 0640 by Jules Walters RN restraints in place.skin/circulation wnl.
--- NOTE | 2021-04-22 06:33 | NUR ---
pt.assessed.restraints in place.skin/circulation wnl.per flacc pt.absent facial grimaces/body posturing.pt.assessed for cleanliness. pt.repositioned.i have attended to the wound care.general status stable.respiratory status stable;unlabored;02-sat%=96%.i have weighed the pt;chf.call light placed w/in access of the pt. Addendum: 04/22/21 at 0638 by Jules Walters RN pt's affect;restlessness/agitation.restraints placed;wrist bilateral@this hour.
[2021-04-22 06:42] LABS: BASOPHILS # (AUTO) 0.1 K/uL (0.0-0.2); BASOPHILS % (AUTO) 0.5 % (0.0-2.0); EOSINOPHILS # (AUTO) 0.1 K/uL (0.0-0.4); HEMATOCRIT 33.3 % (36-54); LYMPHOCYTES # (AUTO) 0.8 K/uL (1.0-5.5); LYMPHOCYTES % (AUTO) 6.2 % (20.5-51.5); MEAN CORPUSCULAR HEMOGLOBIN 31 pg (27-31); MEAN CORPUSCULAR HGB CONC 33 % (32-36); MEAN CORPUSCULAR VOLUME 95 fL (79.0-98.0); MONOCYTES # (AUTO) 0.6 K/uL (0.0-1.0); MONOCYTES % (AUTO) 5.1 % (1.7-9.3); NEUTROPHILS # (AUTO) 10.7 K/uL (1.8-7.7); NEUTROPHILS % (AUTO) 87.2 % (40.0-70.0); PLATELET COUNT (AUTO) 126 K/uL (130-430); RED BLOOD CELL COUNT(AUTO) 3.52 MIL/uL (4.2-6.2); RED CELL DISTRIBUTION WIDTH 20.5 % (9.0-15.0); WHITE BLOOD COUNT (AUTO) 12.3 K/uL (4.8-10.8)
[2021-04-22 07:18] LABS: ALANINE AMINOTRANSFERASE 27 U/L (12-78); ALBUMIN 2.8 g/dL (3.4-4.8); ANION GAP 17 (5-15); ASPARTATE AMINOTRANSFERASE 41 U/L (10-37); CALCIUM 8.3 mg/dL (8.4-11.0); CHLORIDE 112 mmol/L (98-107); CREATININE 1.45 mg/dL (0.55-1.30); GLUCOSE 100 mg/dL (70-99); POTASSIUM 3.6 mmol/L (3.5-5.1); SODIUM SERUM 145 mmol/L (136-145); TOTAL BILIRUBIN 1.2 mg/dL (0.0-1.0); UREA NITROGEN, BLOOD 27 mg/dL (8-21)
[2021-04-22] MEDS: NACL 0.9% 1,000 ML IV SCH ×3 (08:09→20:08)
--- NOTE | 2021-04-22 08:30 | NUR ---
Dr. Burns at bedside. Provided update on titrating down dopamine and patient update. MD to review medication and place orders.
[2021-04-22] MEDS: THEOPHYLLINE ANHYDROUS 200 MG CAP.ER.24H PO SCH ×2 (09:00→20:08)
[2021-04-22] MEDS ORDERED: MODAFINIL 100 MG TABLET (PROVIGIL) PO ONE (09:00)
--- NOTE | 2021-04-22 09:00 | NUR ---
Dr. Price at bedside. Provided patient update. Received order for chest x ray.
[2021-04-22] MEDS ORDERED: BISACODYL 10 MG/SUPPOSITORY RC PRN (09:15)
--- NOTE | 2021-04-22 09:22 | NUR ---
SS notes continued (04/22) AIRLINE MANAGERIAL SUPERVISOR contacted HCP FARNAZ Augustin at [phone] to share assessment, AIRLINE MANAGERIAL SUPERVISOR does not feel pt. can care for self and that pt. has family. AIRLINE MANAGERIAL SUPERVISOR will try calling pts. brother this morning as well as fax notes to FARNAZ Augustin at fax, . AIRLINE MANAGERIAL SUPERVISOR called brother, Shahid (Aly/youngest brother, age 80) in [place] who confirmed pt. does not have any or any kids as well as the recent passing of pts. brother,Jack, age 83. Pt. does have third brother in [facility], Johnny age 81. Aly stated it was ok for pts. doctors to call him and added he was planning on coming out to [place] next week. AIRLINE MANAGERIAL SUPERVISOR does not know if this is a definite plane. AIRLINE MANAGERIAL SUPERVISOR called Dr. Angeli Burns's office who will page him. AIRLINE MANAGERIAL SUPERVISOR will give Dr. Katy Lu's phone number.
[2021-04-22] MEDS ORDERED: BISACODYL 10 MG/SUPPOSITORY RC ONE (09:45)
--- NOTE | 2021-04-22 10:33 | NUR ---
Spoke with Dr. Burns on the phone to discuss patient nutrition. Patient rejecting any oral nutrition. Received orders for TPN at 45 cc IV.
[2021-04-22] MEDS ORDERED: *TPN PER PHARMACY XX PRN (10:45)
[2021-04-22 11:29] LABS: PHOSPHORUS 3.7 mg/dL (2.7-4.5)
--- NOTE | 2021-04-22 12:54 | NUR ---
Nutrition Note Nutrition consult for low Parviz score, Laceration and skin tear and TPN notification received. RN also referred pt to RD at nursing unit. RD reviewed EMR, labs, care trends, notes. Pt passed swallow eval but RN reports he is not eating and needs supplemental nutrition support. Short note d/t lack of time and pt load. Pt w/ central line. Estimated Energy Expenditure (kcals/day) 1552-1471 Kcal/day (25-30 kcal/kg CBW for gradual wt gain promotion) Estimated Protein Required (g/day) 64-96 gm/day (1-1.5 gm/kg IBW for Renal Dz and wt gain) Estimated Fluid Required (l/day) per MD (renal disease) Problem/Etiology/Signs/Symptoms Underweight r/t chronic illness AEB fat and muscle wasting in BUE and BMI <18.5kg/m2. (*ongoing) Risk for malnutrition r/t mental status AEB confusion, poor PO intake, and poor nutrition quality of life. (*ongoing) Inadequate oral intake r/t chronic illness AEB PO intake meets <25% of estimated needs and need for supplemental PN support. (*new) Expected Outcomes/Goals Monitor nutrition support, appetite and PO intake w/ goal of pt meeting more than 75% of estimated nutritional needs, labs trending WNL, normal GI function, skin integrity/wt maintenance. Dietitian Recommendations *Recommend: continue Pureed Cardiac diet as ordered for oral gratification. *Recommend: supplemental nutrition support: D40% AA8.5% at 60ml/hr, IL20% at 5ml/hr via central line Provides: 1464 kcal, 61gm protein, 1560ml fluids and GIR 3.9gm CHO/kg/min. Meets: 99% of upper end of estimated calorie needs and 95% of lower end of estimated protein needs. Follow Up High Risk: F/U in 2-3days Addendum: 04/22/21 at [address] MARIA T Cooney [phone] re: MARIA T jackman for TPN.
--- NOTE | 2021-04-22 19:35 | NUR ---
INITIAL NOTE PATIENT IS LAYING IN BED PT ON IS ON NC. CALL IN REACH. PATIENT UNSUCCESSFULLY DEMONSTRATES USAGE OF CALL LIGHT. WILL CONTINUE TO MONITOR. BED IS LOCKED, ALARMED, AND AT THE LOWEST POSITION. FALL, SAFETY, ASPIRATION, AND RESPIRATORY PRECAUTIONS WILL BE IN PLACE THROUGHOUT THE SHIFT. PLAN OF CARE IS D DISCUSSED WITH PATIENT.
[2021-04-22] MEDS: FAT EMULSIONS 250 ML IV SCH (20:06)
[2021-04-22] MEDS ORDERED: POTASSIUM ACETATE IV SCH ×9 (21:00)
[2021-04-22] MEDS ORDERED: TPN CENTRAL IV SCH ×9 (21:00)
[2021-04-22] MEDS ORDERED: [UNRECOGNIZED DRUG - OTHER] IV SCH ×9 (21:00)
[2021-04-22] MEDS ORDERED: K PHOS IV SCH ×9 (21:00)
--- NOTE | 2021-04-22 22:00 | NUR ---
pt heart rate no sustaining above 40's at this time. Increased dopamine per protocol. pt sp02 also at 88-89% increased NC from 2L to 3L. suctioned. called RT Addendum: 04/23/21 at 0325 by Tara Taveras RN pt heart rate not sustaining above 40's at this time.*
--- NOTE | 2021-04-22 22:40 | NUR ---
rt notes at 2240 was called to the bedside by RN regarding patient desaturation 88%-89% patient on 2L/NC. oxygen increased by RN to 4L/NC patient sating 88%-89%. placed patient on 5L/SM patient sating 89%-90%. @ 2247 PRN breathing treatment given for alleviation of shortness of breath, pt tolerated tx well. patient sating 90% HR 44 RR 22 B/S rhonchus with moist cough unable to clear secretions on his own, pt hyperoxygenated for NTS with Non rebreather mask patient sating 97%-98% NTS using sterile technique through the right nare X2, no adverse reactions, no respiratory distress noted. suctioned small thick white/yellow secretions. post NTS placed patient back on 5L/SM patient sating 96%-97%. ABDULAZIZ haynes. will continue to monitor.
[2021-04-22] MEDS: ALBUTEROL SULFATE 0.083% 2.5 MG/3 ML VIAL.NEB INH PRN (22:50)
[2021-04-23] VITALS (24 sets, daily range): BP systolic 15–188
[2021-04-23] MEDS: DOPamine PREMIX 250 ML IV PRN (00:46)
[2021-04-23] MEDS: PIPERACILLIN/TAZO 2.25G/DEX-IS 50 ML IV SCH ×3 (05:03→17:13)
--- NOTE | 2021-04-23 07:14 | NUR ---
closing note sbar report endorsed to am nurse.
--- NOTE | 2021-04-23 07:15 | NUR ---
opening notes: received report from night shift manager RN, patient is lying in bed,no signs of acute distress noted at this time, Normal saline @53 ml/hr,TPN @42 ml/hr, dopamine drip at 7mcg/kg/min, and Liposyn @ 5ml/hr, on nasal cannula at 3 L.Temperature is 97.9F. Javed Catheter draining to gravity, bed locked at lowest position, fall and safety precaution in place.
[2021-04-23 07:28] LABS: ALANINE AMINOTRANSFERASE 26 U/L (12-78); ALBUMIN 2.8 g/dL (3.4-4.8); ANION GAP 12 (5-15); ASPARTATE AMINOTRANSFERASE 34 U/L (10-37); CALCIUM 8.2 mg/dL (8.4-11.0); CHLORIDE 113 mmol/L (98-107); CREATININE 1.53 mg/dL (0.55-1.30); GLUCOSE 168 mg/dL (70-99); PHOSPHORUS 2.8 mg/dL (2.7-4.5); POTASSIUM 3.7 mmol/L (3.5-5.1); SODIUM SERUM 147 mmol/L (136-145); UREA NITROGEN, BLOOD 27 mg/dL (8-21)
--- NOTE | 2021-04-23 08:00 | NUR ---
. Rounds: Dr. Burns is at bedside assessing the patient.
[2021-04-23] MEDS: FUROSEMIDE 20 MG/2 ML VIAL IVP SCH (08:09)
[2021-04-23] MEDS: MODAFINIL 100 MG TABLET (PROVIGIL) PO SCH (09:00)
[2021-04-23] MEDS: THEOPHYLLINE ANHYDROUS 200 MG CAP.ER.24H PO SCH ×2 (09:00→20:43)
[2021-04-23] MEDS: NACL 0.9% 1,000 ML IV SCH (11:58)
[2021-04-23] MEDS ORDERED: DEXTROSE 50%-WATER 50 ML DISP.SYRIN IVP PRN (15:45)
[2021-04-23] MEDS: INSULIN REGULAR, HUMAN 100 UNITS/ML, 10 ML VIAL (humuLIN R) SUBCUT PRN (16:12)
--- NOTE | 2021-04-23 16:15 | NUR ---
RN notes: China (friend) is at bedside.
--- NOTE | 2021-04-23 17:23 | NUR ---
RN notes: gave 2 units of regular insular( blood sugar is 179) 69 minutes ago, check the blood sugar again at 1723 and is 164, did not gave 2 units of regular insulin.
--- NOTE | 2021-04-23 19:15 | NUR ---
OPENING NOTE: REPORT RECEIVED FROM RN USING SBAR REPORTING. ALL CARE ASSUMED.
--- NOTE | 2021-04-23 20:00 | NUR ---
DOPAMINE: DOPAMINE TURNED OFF DUE TO ELEVATED BP. HR WNL. WILL CONTINUE TO MONITOR.
[2021-04-23] MEDS: FAT EMULSIONS 250 ML IV SCH (20:41)
[2021-04-23] MEDS ORDERED: [UNRECOGNIZED DRUG - OTHER] IV SCH ×10 (21:00)
[2021-04-23] MEDS ORDERED: POTASSIUM ACETATE IV SCH ×10 (21:00)
[2021-04-23] MEDS ORDERED: K PHOS IV SCH ×10 (21:00)
[2021-04-23] MEDS ORDERED: TPN CENTRAL IV SCH ×10 (21:00)
[2021-04-24] VITALS (31 sets, daily range): BP systolic 106–179
--- NOTE | 2021-04-24 00:30 | NUR ---
DR. ADAM HAY [facility] [phone] ORDERS SPOKE WITH JOSH
[2021-04-24] MEDS: PIPERACILLIN/TAZO 2.25G/DEX-IS 50 ML IV SCH ×4 (00:33→17:47)
[2021-04-24] MEDS: INSULIN REGULAR, HUMAN 100 UNITS/ML, 10 ML VIAL (humuLIN R) SUBCUT PRN ×2 (00:36→12:07)
[2021-04-24] MEDS: hydrALAZINE HCL 20 MG/ML VIAL IVP PRN (00:37)
--- NOTE | 2021-04-24 01:02 | NUR ---
2ND CALL FOR DR. MEDINA ORDERS [phone] SPOKE WITH JOSH
--- NOTE | 2021-04-24 01:10 | NUR ---
DR MEDINA SPOKE WITH DR MEDINA AND UPDATED HER ON PTS STATUS, NEW ORDERS ACKNOWLEDGED AND CARRIED OUT.
[2021-04-24] MEDS ORDERED: LORazepam 2 MG/ML VIAL IVP ONE (01:45)
[2021-04-24 06:48] LABS: ALANINE AMINOTRANSFERASE 24 U/L (12-78); ALBUMIN 2.6 g/dL (3.4-4.8); ANION GAP 15 (5-15); ASPARTATE AMINOTRANSFERASE 32 U/L (10-37); CALCIUM 8.2 mg/dL (8.4-11.0); CHLORIDE 111 mmol/L (98-107); CREATININE 1.43 mg/dL (0.55-1.30); GLUCOSE 130 mg/dL (70-99); PHOSPHORUS 2.4 mg/dL (2.7-4.5); SODIUM SERUM 146 mmol/L (136-145); UREA NITROGEN, BLOOD 32 mg/dL (8-21)
--- NOTE | 2021-04-24 07:15 | NUR ---
RN NOTES: RECEIVED REPORT FROM ENDORSING RN, PATIENT IS LYING IN BED, ON NASAL CANNULA AT 3 L., YOUNG CATHETER DRAINING TO GRAVITY, NO SIGNS OF RESPIRATORY DISTRESS NOTED AT THIS TIME.BED LOCKED AT LOWEST POSITION. FALL AND SAFETY PRECAUTION IN PLACE.
[2021-04-24] MEDS: NACL 0.9% 1,000 ML IV SCH ×2 (07:35→15:36)
--- NOTE | 2021-04-24 07:50 | NUR ---
RN NOTES; DR. THACKER IS AT BEDSIDE ASSESSING THE PATIENT.
--- NOTE | 2021-04-24 07:52 | NUR ---
RN NOTES: DR. MORALES IS AT BEDSIDE ASSESSING THE PATIENT
--- NOTE | 2021-04-24 08:00 | NUR ---
RN NOTES; PATIENT IS ANXIOUS, CONGESTED, LETHARGIC. PPN AND LIPIDS INFUSING.DR Esequiel THACKER CAME AND ASSESS PATIENT, AND ORDERED TO INSERT A FEEDING TUBE.YEISON HILLIARD SIZE 7 INSERTED RIGHT NARES. AIR INJECTED INTO TUBE,GAS HEARD OVER STOMACH FIELD.
--- NOTE | 2021-04-24 08:18 | NUR ---
X ray: chest x ray done at bedside to confirm placement of NGT.
[2021-04-24] MEDS: KCL 20 mEq in 100 mL (PREMIX) 100 ML IV SCH ×2 (09:13→11:46)
[2021-04-24] MEDS: NICOTINE 14 MG/24 HR PATCH.TD24 TD SCH (09:14)
[2021-04-24] MEDS: FUROSEMIDE 20 MG/2 ML VIAL IVP SCH (09:14)
[2021-04-24] MEDS: MODAFINIL 100 MG TABLET (PROVIGIL) PO SCH (09:15)
[2021-04-24] MEDS: THEOPHYLLINE ANHYDROUS 200 MG CAP.ER.24H PO SCH (09:15)
--- NOTE | 2021-04-24 09:45 | NUR ---
RT NOTES Pt. was intubated by Dr Price, glidescope was utilized. 7.0 ETT secured at 25cm. CO2 indicator changed to yellow. Bilateral b/s/chest rise noted. Pt. was placed on the vent AC 16 500 +5 100% per . Alarms are set and audible. Resus. bag remains at bedside. Sputum was collected during bronchoscopy w/c pt. tolerated well. Sample was endorsed to lab. ABG to be drawn as ordered.
[2021-04-24] MEDS ORDERED: MORPHINE SULFATE IN 0.9 % NACL 100 ML IV PRN (10:15)
[2021-04-24] MEDS: MIDAZOLAM IN NACL,ISO-OSMOT/PF 100 ML IV PRN (11:05)
[2021-04-24] MEDS ORDERED: ETOMIDATE 20 MG/ 10 ML VIAL (AMIDATE) IVP ONE (11:46)
[2021-04-24] MEDS ORDERED: SUCCINYLCHOLINE CHLORIDE 20 MG/ML(QUELICIN) IVP ONE (11:47)
--- NOTE | 2021-04-24 12:05 | NUR ---
RT NOTES Per ABG result and titration order, FIO2 to 0.70. Will monitor pt. RN aware.
--- NOTE | 2021-04-24 12:32 | NUR ---
RN NOTES: FEEDING VIA NGT STARTED WITH JEVITY MAINTAINED HEAD OF BED ELEVATED AT 35 DEGREE ANGLE, ORAL CARE PROVIDED NEEDED.
--- NOTE | 2021-04-24 13:20 | NUR ---
RT NOTES FIO2 to 0.60 per titration order. Will monitor pt. RN made aware.
[2021-04-24] MEDS ORDERED: K PHOS 30 MM in NS 250 ML IV ONE (15:00)
[2021-04-24] MEDS ORDERED: THEOPHYLLINE ANHYDROUS 200 MG TAB.SR.12H PO SCH (15:00)
[2021-04-24] MEDS: THEOPHYLLINE ANHYDROUS 80 MG/15 ML UDC PO SCH (15:05)
--- NOTE | 2021-04-24 15:05 | NUR ---
Nutrition Follow Up Note RD note: per MD assessment, Acute on chronic respiratory failure, Unable to clear up the secretions. Recurrent septicemia, Pulmonary hypertension, Severe chronic obstructive pulmonary disease, Advanced atrioventricular block, Chronic kidney disease, Hypertension. Per Pts nurse, TF started and TPN to be weaned off. Pt intubated. Diet order: Jevity 1.5 @ 20 mL/hr via NG tube, 150 ml FWF (provides 480 mL total volume, 720 kcals, 30.6 gm protein, 364.8 mL free fluids, with FWF provides 514.8 mL fluids) TPN: D40% AA8.5% at 60ml/hr, IL20% at 5ml/hr via central line. (Provides: 1464 kcal, 61gm protein, 1560ml fluids and GIR 3.9gm CHO/kg/min) With EN and CPN support, pt receiving 2184 kcals, 91.6 gm protein, 2074.8 ml fluids (meets 166% of kcal needs, 95% of upper end protein needs) Skin: Parviz: 11, posterior head laceration, R/L arm dressing CDI Edema: pitting + 1 bilateral feet GI: distended, hypoactive bowel sounds, last BM: 04/24 Ht: 66 inches Wt; 50.859 kg (111.8 lbs) BMI: 18.1 kg/m2 (underweight status) IBW: 142 lbs %IBW: 78% Estimated Energy Expenditure (kcals/day) 1313 PSU 2003b equation for ventilated pts VS. 2957-5119 Kcal/day (25-30 kcal/kg CBW for gradual wt gain promotion) Estimated Protein Required (g/day) 64-96 gm/day (1-1.5 gm/kg IBW for Renal Dz and wt gain) Estimated Fluid Required (l/day) per MD (CKD) Problem/Etiology/Signs/Symptoms 1)Underweight r/t chronic illness AEB fat and muscle wasting in BUE and BMI <18.5kg/m2. (*ongoing) 2)Risk for malnutrition r/t mental status AEB confusion, poor PO intake, and poor nutrition quality of life. (*ongoing) 3) Inadequate oral intake r/t chronic illness AEB PO intake meets <25% of estimated needs and need for supplemental PN support. (resolved) 4)Excessive energy intake related to CPN/EN infusion rates as evidenced by pt receiving 166% of estimated kcal needs (new*, CPN to be tapered) Expected Outcomes/Goals Monitor nutrition support, appetite and PO intake w/ goal of pt meeting more than 75% of estimated nutritional needs, labs trending WNL, normal GI function, skin integrity/wt maintenance. Dietitian Recommendations Recommend continuing TF via NG tube and continue to taper down PN as medically appropriate. *Recommend: when pt is no longer receiving CPN, advance current EN regimen to a new goal of Jevity 1.5 @ 35 mL/hr. advance by 10 ml Q6H, as tolerated, until goal rate is reached. At goal rate, it will provide 840 mL total volume, 1260 kcals, 638.4 mL free fluids, FWF per MD due to CKD. Meets: 99% of upper end of estimated calorie needs and 95% of lower end of estimated protein needs. Follow Up High Risk: F/U in 2-3days MARIA T PAULA Addendum: 04/24/21 at [address] *Recommend: when pt is no longer receiving CPN, advance current EN regimen to a new goal of Jevity 1.5 @ 35 mL/hr. advance by 10 ml Q6H, as tolerated, until goal rate is reached. At goal rate, it will provide 840 mL total volume, 1260 kcals, 54 gm protein, 638.4 mL free fluids, FWF per MD due to CKD. Meets: 96% of upper end of estimated calorie needs and 84% of lower end of estimated protein needs. KW, RD
--- NOTE | 2021-04-24 15:42 | NUR ---
RT NOTES FIO2 to 0.50 per titration order. Will monitor pt. RN made aware.
--- NOTE | 2021-04-24 19:42 | NUR ---
PAGED DR. THACKER ORDERS [phone] SPOKE WITH BERTHA
--- NOTE | 2021-04-24 20:05 | NUR ---
[address]ND CALL DR. THACKER [phone] ORDERS SPOKE WITH BERTHA
[2021-04-24] MEDS: DOPamine PREMIX 250 ML IV PRN (20:35)
[2021-04-24] MEDS ORDERED: K PHOS IV SCH ×10 (21:00)
[2021-04-24] MEDS ORDERED: [UNRECOGNIZED DRUG - OTHER] IV SCH ×10 (21:00)
[2021-04-24] MEDS ORDERED: TPN CENTRAL IV SCH ×10 (21:00)
[2021-04-24] MEDS ORDERED: POTASSIUM ACETATE IV SCH ×10 (21:00)
[2021-04-25] VITALS (35 sets, daily range): BP systolic 109–170
[2021-04-25] MEDS: THEOPHYLLINE ANHYDROUS 80 MG/15 ML UDC PO SCH ×4 (00:36→23:16)
[2021-04-25] MEDS: PIPERACILLIN/TAZO 2.25G/DEX-IS 50 ML IV SCH ×5 (00:36→23:17)
[2021-04-25] MEDS: MIDAZOLAM IN NACL,ISO-OSMOT/PF 100 ML IV PRN (01:56)
[2021-04-25 06:10] LABS: BASOPHILS % (AUTO) 0.5 % (0.0-2.0); EOSINOPHILS # (AUTO) 0.2 K/uL (0.0-0.4); EOSINOPHILS % (AUTO) 2.6 % (0.0-4.0); HEMATOCRIT 34.3 % (36-54); HEMOGLOBIN 11.6 g/dL (14.0-18.0); LYMPHOCYTES # (AUTO) 0.5 K/uL (1.0-5.5); LYMPHOCYTES % (AUTO) 5.9 % (20.5-51.5); MEAN CORPUSCULAR HEMOGLOBIN 31 pg (27-31); MEAN CORPUSCULAR HGB CONC 34 % (32-36); MEAN CORPUSCULAR VOLUME 93 fL (79.0-98.0); MONOCYTES # (AUTO) 0.6 K/uL (0.0-1.0); MONOCYTES % (AUTO) 6.7 % (1.7-9.3); NEUTROPHILS # (AUTO) 7.7 K/uL (1.8-7.7); NEUTROPHILS % (AUTO) 84.3 % (40.0-70.0); PLATELET COUNT (AUTO) 112 K/uL (130-430); RED CELL DISTRIBUTION WIDTH 20.2 % (9.0-15.0); WHITE BLOOD COUNT (AUTO) 9.1 K/uL (4.8-10.8)
[2021-04-25 07:11] LABS: ALANINE AMINOTRANSFERASE 29 U/L (12-78); ALBUMIN 2.6 g/dL (3.4-4.8); ANION GAP 15 (5-15); ASPARTATE AMINOTRANSFERASE 29 U/L (10-37); CALCIUM 8.3 mg/dL (8.4-11.0); CHLORIDE 111 mmol/L (98-107); CREATININE 1.42 mg/dL (0.55-1.30); GLUCOSE 84 mg/dL (70-99); PHOSPHORUS 3.5 mg/dL (2.7-4.5); POTASSIUM 3.3 mmol/L (3.5-5.1); SODIUM SERUM 147 mmol/L (136-145); TOTAL BILIRUBIN 1.4 mg/dL (0.0-1.0); UREA NITROGEN, BLOOD 33 mg/dL (8-21)
--- NOTE | 2021-04-25 07:22 | NUR ---
OPENING NOTE Patient resting in the bed. No acute distress. ETT inplaced to vent: AC 16, VT 450, FIO2 40%, PEEP 5. O2 sat 100% at this time. HOB elevated. On NGT feeding of Jevity 1.5 at 20ml/hr. Skin warm and dry to touch. PICC line intact to MARIA A, no redness, no swelling, no drainage. On Dopamine drip at 14.99mcg/kg/min, Versed drip at 3mg/hr, and NS at 53ml/hr, infusing well. Bilateral soft wrist restraint in placed. Able to move fingers and hands without problems, pulse present. F/C intact, drain gravity. Safety measure maintained. Call light within reached. Bed locked in low position, side rails up. Will continue to monitor.
--- NOTE | 2021-04-25 07:25 | NUR ---
RT NOTES FIO2 to 0.40 per titration order. Will monitor pt. Rn made aware.
[2021-04-25 07:44] LABS: ERYTHROCYTE SEDIMENTATION RATE 38 MM/HR (0-15)
[2021-04-25 07:55] LABS: C-REACTIVE PROTEIN QUANT 13.9 mg/dL (0-0.5)
--- NOTE | 2021-04-25 08:20 | NUR ---
SEEN AND EXAMINED BY DIAMOND LEONARD.
[2021-04-25] MEDS: FUROSEMIDE 20 MG/2 ML VIAL IVP SCH (09:07)
[2021-04-25] MEDS: NICOTINE 14 MG/24 HR PATCH.TD24 TD SCH (09:07)
[2021-04-25] MEDS: MODAFINIL 100 MG TABLET (PROVIGIL) PO SCH (09:07)
--- NOTE | 2021-04-25 09:11 | NUR ---
SEEN AND EXAMINED BY ANGELICA MARTE. AWARE K 3.3 WITH ORDER RECEIVED.
[2021-04-25] MEDS: KCL 20 mEq in 100 mL (PREMIX) 100 ML IV SCH ×2 (09:17→11:25)
--- NOTE | 2021-04-25 09:30 | NUR ---
SECOND NURSE WITNESS: Witnessed as second nurse Dopamine titration to 14 mcg/kg/min at this time.
--- NOTE | 2021-04-25 09:30 | NUR ---
DECREASED DOPAMINE DRIP TO 14MCG/KG/MIN EKG done at bedside by RT and reviewed by Ambrocio Reese. Per Dr. Burns, decrease Dopamine drip 1 mcg Q2hr. New rate is Dopamine drip at 14mcg/kg/min. Witness by charge nurse Starla.
--- NOTE | 2021-04-25 10:00 | NUR ---
INCREASED NGT FEEDING TO 30ML/HR Dr. Burns ordered to increase NGT feeding to 40ml/hr. Increased Jevity 1.5 at 20ml/hr to 30ml/hr, will check the residual 2 hr later and increase 10ml/hr more if no residual.
--- NOTE | 2021-04-25 10:36 | NUR ---
SEEN AND EXAMINED BY RIK FRIEDMAN.
--- NOTE | 2021-04-25 10:49 | NUR ---
DECREASED DOPAMINE DRIP FROM 14MCG/KG/MIN TO 10MCG/KG/MIN PER YAMILET HICKS Seen and examined by Dr. Price. Dr. Price stated 'to decrease Dopamine drip to 10mcg/kg/min. it is no reason to keep the Dopamine drip at that high and the patient BP still high and it won't help". Told Dr. Albert Burns ordered to decrease 1mcg Q2hr after he review EKG result at bedside and decreased at 0930. Dr. Price 'it doesn't matter, just decrease now and follow Dr. Burns order to decrease 1mcg Q 2hr as tolerated'.
--- NOTE | 2021-04-25 12:12 | NUR ---
BS 142 No insulin coverage needed per sliding scale. Patient resting in the bed. No acute distress. ETT intact to vent. HOB elevated all the time. Continue on NGT feeding, tolerated well. Bilateral soft restraint inplaced, pulse present. F/C intact, drain gravity. Safety measure maintained. Call light within reached. Continue to monitor.
--- NOTE | 2021-04-25 14:30 | NUR ---
DECREASED DOPAMINE DRIP FROM 10MCG/KG/MIN TO 9MCG/KG/MIN. WITNESS BY ABDULAZIZ SANTANA.
[2021-04-25] MEDS: NACL 0.9% 1,000 ML IV SCH (15:17)
--- NOTE | 2021-04-25 15:30 | NUR ---
INCREASED RATE OF TUBE FEEDING TO 40ML/HR Rechecked tube feeding residual with 5ml. Increased Jevity 1.5 FROM 30ML/HR TO 40ML/HR. HOB elevated. picc line intact, continue on Versed drip at 3mg/hr, Dopamine drip at 9mcg/kg/min, and NS at 53ml/hr, infusing well. F/C intact, drain gravity. Bilateral soft restraint in placed, pulse present. Released Q 2 hr, no skin breakdown noted. Safety measure maintained. Call light within reached. Continue to monitor.
[2021-04-25] MEDS: DOPamine PREMIX 250 ML IV PRN (17:28)
--- NOTE | 2021-04-25 19:15 | NUR ---
change of shift.pt.presents ett:#7.[address]pt[address]presents ng-tube;location:rt.nares;ng-tube feed;jevity;1.5 infusing rate; 40ml/hr. picc line;location;rt.bicept intact;iv fluids ns;infusing rate;50ml/hr.drips:dopamine;conc;8.9mcq/kg/min:infusing rate;=18.3ml/hr.versed;conc;3mg/hr rate:3ml/hr.pt.presents diaz cath intact urine content present.vent settings;tv;450,fi02%=40%,a/c;16,peep;5.general status stable.respiratory status stable;02-sat%=100%.call light w/in access of the pt.. Addendum: 04/25/21 at 2247 by Jules Walters RN pt.presents restraints:wrist;bilateral in place.skin/circulation wnl.
--- NOTE | 2021-04-25 19:15 | NUR ---
CLOSING NOTE Patient resting in the bed. No acute distress. ETT inplaced to vent: AC 16, VT 450, FIO2 40%, PEEP 5. HOB elevated all the time. On NGT feeding of Jevity 1.5 at 400ml/hr, tolerated well. Skin warm and dry to touch. PICC line intact to MARIA A, no redness, no swelling, no drainage. On Dopamine drip at 9mcg/kg/min, Versed drip at 3mg/hr, and NS at 53ml/hr, infusing well. Bilateral soft wrist restraint in placed. pulse resent. Released Q 2hr. F/C intact, drain gravity. Safety measure maintained. Call light within reached. Bed locked in low position, side rails up. Report given to night nurseJules at bedside.
--- NOTE | 2021-04-25 20:00 | NUR ---
pt.assessed.v/s assessed valueslnte b/p status; w/in normal limits.ett/ngt in place.i have attended to the oral care/suction. picc line intact iv fluids/drips;dopamine/versed infusing.note:b/p,loc status.diaz cath intact urine content present.pt.assessed for cleanliness.pt.repositioned.general status stable.respiratory status stable;02-sat%=100%.call light placed w/in access of the pt. Addendum: 04/25/21 at 2248 by Jules Walters RN restraints:wrist;bilateral in place.skin/circulation wnl. Addendum: 04/25/21 at 2311 by Jules Walters RN per flacc pain mgx pt.absent facial grimaces/body posturing.
--- NOTE | 2021-04-25 22:00 | NUR ---
pt.assessed.v/s assessed:note b/p status;dopamine administration.ett/ngt intact.i have attended to the oral/care suction. picc line intact iv fluids/drip:dopamine/versed infusing.note b/p,loc status.diaz cath intact urine content present.pt.assessed for cleanliness pt.repositioned. general status stable.respiratory status stable:02-sat%=100%.restraints in place.skin/circulation wnl.call light placed w/in access of the pt. Addendum: 04/25/21 at 2312 by Jules Walters RN per flacc pain mgx pt.absent facial grimaces/body posturing.
[2021-04-26] VITALS (30 sets, daily range): BP systolic 108–154
--- NOTE | 2021-04-26 | NUR ---
pt.assessed.v/s assessed values wnl.note b/p values;dopamine drip.ett/ngt intact i have attended to the oral care/suction/ picc line intact iv fluids/drips;dopamine/versed infusing.note b/p,loc status.diaz cath intact urine content present.restraints; wrist:bilateral in place skin/circulation wnl.pt.assessed for cleanliness.pt.repositioned.per flacc pain mgx pt.absent facial/ grimaces/body posturing.genral status stable.respriratory status stable;02-sat%=100%.call light placed w/in access of the pt. Addendum: 04/26/21 at 0054 by Jules Walters RN zosyn abx ivpb midnight dose administered.blood glucose assessed value;145mg/dl.
--- NOTE | 2021-04-26 02:00 | NUR ---
pt.assessed.v/s assessed values; note b/p status.ett/ngt intact i have attended to the oral care/suction.picc line intact iv fluids/drip;dopamine/versed infusing:note b/p,loc status.g-tube feed infusing.diaz cath intact urine content present.per flacc pain mgx pt.absent facial grimaces/body posturing.restraints in place.skin/circulation wnl.general status stable.respiratory status stable.o2-sat%=96%.call light places w/in access of the pt.
--- NOTE | 2021-04-26 04:00 | NUR ---
pt.assessed.v/s assessed note b/p status.ett/ngt intact i have attended to the oral care/suction.picc intact iv fluids;drip;dopamine/versed infusing note b/p,loc status.ng-tube intact ngt tube feed infusing. diaz cath intact urine content present.pt.assessed for cleanliness pt.repositioned.general status stable.respiratory status \stable:02-sat%=- 100%.per flacc pain mgx pt.absent facial grimace/body posturing.restraints wrist in place.skin/circulation wnl.call light placed w/in access of the pt.
[2021-04-26] MEDS: MIDAZOLAM IN NACL,ISO-OSMOT/PF 100 ML IV PRN (05:31)
[2021-04-26] MEDS: PIPERACILLIN/TAZO 2.25G/DEX-IS 50 ML IV SCH ×4 (05:34→23:40)
[2021-04-26] MEDS: THEOPHYLLINE ANHYDROUS 80 MG/15 ML UDC PO SCH ×3 (05:36→23:02)
[2021-04-26 06:25] LABS: BASOPHILS % (AUTO) 0.6 % (0.0-2.0); EOSINOPHILS # (AUTO) 0.3 K/uL (0.0-0.4); EOSINOPHILS % (AUTO) 4.1 % (0.0-4.0); HEMOGLOBIN 10.8 g/dL (14.0-18.0); LYMPHOCYTES # (AUTO) 0.8 K/uL (1.0-5.5); LYMPHOCYTES % (AUTO) 9.2 % (20.5-51.5); MEAN CORPUSCULAR HEMOGLOBIN 31 pg (27-31); MEAN CORPUSCULAR HGB CONC 34 % (32-36); MEAN CORPUSCULAR VOLUME 93 fL (79.0-98.0); MONOCYTES # (AUTO) 0.6 K/uL (0.0-1.0); MONOCYTES % (AUTO) 7.5 % (1.7-9.3); NEUTROPHILS # (AUTO) 6.6 K/uL (1.8-7.7); NEUTROPHILS % (AUTO) 78.6 % (40.0-70.0); PLATELET COUNT (AUTO) 120 K/uL (130-430); RED BLOOD CELL COUNT(AUTO) 3.44 MIL/uL (4.2-6.2); RED CELL DISTRIBUTION WIDTH 20.1 % (9.0-15.0); WHITE BLOOD COUNT (AUTO) 8.5 K/uL (4.8-10.8)
--- NOTE | 2021-04-26 06:30 | NUR ---
pt.assessed.v/s assessed note b/p status.ett/ogt intact.i have attended to the oral care/suction.picc line intact iv fluids/diprivan drip infusing.note loc. restraints in place.skin/circulation wnl.pt.assessed for cleanliness.pt.cleaned/repositioned.general status stable.respiratory status stable:02-sat%=100%.call light placed w/in access of the pt. Addendum: 04/28/21 at 1932 by Jules Walters RN i have attended to the picc line dsg change.the wound care dsg changed.
[2021-04-26 06:45] LABS: ALANINE AMINOTRANSFERASE 32 U/L (12-78); ALBUMIN 1.9 g/dL (3.4-4.8); ANION GAP 10 (5-15); ASPARTATE AMINOTRANSFERASE 34 U/L (10-37); CALCIUM 8.2 mg/dL (8.4-11.0); CHLORIDE 110 mmol/L (98-107); CREATININE 1.48 mg/dL (0.55-1.30); GLUCOSE 126 mg/dL (70-99); PHOSPHORUS 3.4 mg/dL (2.7-4.5); SODIUM SERUM 145 mmol/L (136-145); UREA NITROGEN, BLOOD 32 mg/dL (8-21)
--- NOTE | 2021-04-26 07:30 | NUR ---
Opening Pt received from night RN using SBAR for bedside report.
[2021-04-26 08:06] LABS: POTASSIUM 2.9 mmol/L (3.5-5.1)
[2021-04-26] MEDS: DOPamine PREMIX 250 ML IV PRN (08:22)
[2021-04-26] MEDS: FUROSEMIDE 20 MG/2 ML VIAL IVP SCH (08:22)
[2021-04-26] MEDS: MODAFINIL 100 MG TABLET (PROVIGIL) PO SCH (08:22)
[2021-04-26] MEDS: NICOTINE 14 MG/24 HR PATCH.TD24 TD SCH (08:29)
[2021-04-26] MEDS ORDERED: POTASSIUM CHLORIDE 20 MEQ TAB.PRT.SR NG ONE ×2 (08:30→10:30)
--- NOTE | 2021-04-26 08:36 | NUR ---
Sedation Stopped Versed per Dr. Pak for sedation vacation
[2021-04-26] MEDS: ENOXAPARIN SODIUM 30 MG/0.3 ML SYRINGE SUBCUT SCH (08:54)
[2021-04-26 09:19] LABS: C-REACTIVE PROTEIN QUANT 20.6 mg/dL (0-0.5)
[2021-04-26 11:23] LABS: ERYTHROCYTE SEDIMENTATION RATE 45 MM/HR (0-15)
[2021-04-26] MEDS: NACL 0.9% 1,000 ML IV SCH (12:42)
--- NOTE | 2021-04-26 17:15 | NUR ---
Family Pts brother Aly is bedside with pt, 2 bags of personal belongings and 1 denture cup (with dentures) also given to Aly to take home.
--- NOTE | 2021-04-26 19:10 | NUR ---
Closing Notes pt endorsed to night RN using SBAR at bedside.
--- NOTE | 2021-04-26 20:00 | NUR ---
ORALLY INTUBATED. SUCTIONED WITH COPIOUS AMOUNTS OF TENACIOUS YELLOW MUCUS OBTAINED. ORAL CARE GIVEN. NGT FEEDING WITH JEVITY 1.5 AT 40CC/HR. RESIDUAL CHECK 20CC. MARIA A PICC LINE DRSG D/I. ON DOPAMINE AT 8.9 MCG/KG/MIN. DOPAMINE DECREASED TO 5 MCG/KG/MIN. ANGY SOFT WRIST RESTRAINTS ON FOR SAFETY. YOUNG CATH PATENT DRAINING CLOUDY YVONNE URINE TO GRAVITY. SR.
--- NOTE | 2021-04-26 21:50 | NUR ---
VERSED DRIP TURNED ON AT 3 MG/HR FOR RESTLESSNESS. HS CARE RENDERED.
[2021-04-26] MEDS: INSULIN REGULAR, HUMAN 100 UNITS/ML, 10 ML VIAL (humuLIN R) SUBCUT PRN (23:39)
[2021-04-27] VITALS (30 sets, daily range): BP systolic 83–147
--- NOTE | 2021-04-27 | NUR ---
SUCTIONED WITH SAME RESULTS. ORAL CARE GIVEN. RESIDUAL CHECK 60CC. NGT FLUSHED WITH [id number]. CIRCULATION CHECK DONE. ACCU-CHEK 138, NO INSULIN DUE PER SLIDING SCALE COV.
--- NOTE | 2021-04-27 02:00 | NUR ---
REPOSITIONED. PULSES PALPABLE. SUCTIONED.
[2021-04-27] MEDS: DOPamine PREMIX 250 ML IV PRN (02:37)
--- NOTE | 2021-04-27 04:00 | NUR ---
SUCTIONED. ORAL CARE DONE. AM CARE GIVEN. SRAVAN LEON.
--- NOTE | 2021-04-27 06:00 | NUR ---
SUCTIONED AND TURNED Q2 HRS AND PRN. NGT FLUSHED WITH 100CC H2O. UO GOOD. ACCU-CHEK 128, NO INSULIN DUE PER SLIDING SCALE COV. REMAINS IN GUARDED CONDITION.
[2021-04-27] MEDS: PIPERACILLIN/TAZO 2.25G/DEX-IS 50 ML IV SCH ×4 (06:05→23:50)
[2021-04-27] MEDS: THEOPHYLLINE ANHYDROUS 80 MG/15 ML UDC PO SCH ×3 (06:05→23:03)
[2021-04-27] MEDS: INSULIN REGULAR, HUMAN 100 UNITS/ML, 10 ML VIAL (humuLIN R) SUBCUT PRN ×2 (06:55→23:53)
--- NOTE | 2021-04-27 07:10 | NUR ---
OPENING NOTE: RECEIVED REPORT FROM RN USING SBAR REPORTING. ALL CARE ASSUMED.
--- NOTE | 2021-04-27 07:50 | NUR ---
VERSED OFF. VERSED TURNED OFF FOR ANTICIPATION OF WEANING TRAILS TODAY. WILL CONTINUE TO MONITOR.
[2021-04-27] MEDS: NICOTINE 14 MG/24 HR PATCH.TD24 TD SCH (08:24)
[2021-04-27] MEDS: FUROSEMIDE 20 MG/2 ML VIAL IVP SCH (08:24)
[2021-04-27] MEDS: MODAFINIL 100 MG TABLET (PROVIGIL) PO SCH (08:24)
[2021-04-27] MEDS: ENOXAPARIN SODIUM 30 MG/0.3 ML SYRINGE SUBCUT SCH (08:25)
[2021-04-27 08:38] LABS: ALANINE AMINOTRANSFERASE 33 U/L (12-78); ALBUMIN 1.8 g/dL (3.4-4.8); ANION GAP 11 (5-15); ASPARTATE AMINOTRANSFERASE 29 U/L (10-37); CALCIUM 8.2 mg/dL (8.4-11.0); CHLORIDE 108 mmol/L (98-107); CREATININE 1.63 mg/dL (0.55-1.30); GLUCOSE 147 mg/dL (70-99); POTASSIUM 3.4 mmol/L (3.5-5.1); SODIUM SERUM 144 mmol/L (136-145); TOTAL BILIRUBIN 0.7 mg/dL (0.0-1.0); UREA NITROGEN, BLOOD 33 mg/dL (8-21)
--- NOTE | 2021-04-27 08:48 | NUR ---
0800 PT PLACED ON CPAP 5 PS10 TRIAL. RN AWARE. WILL CONT. TO MONITOR. Addendum: 04/27/21 at 0849 by Gricelda Bethea RT Amended: Links added.
--- NOTE | 2021-04-27 12:40 | NUR ---
Nutrition F/U Admitting Diagnosis: Heart Block Medical History Comment: Pt w/: Cardiac heart block, second and third degree, renal failure, UTI, Noncompliance, HTN, extensive COPD per MD notes. PMH: COPD, Asthma, HTN, Renal disease, Hyperlipidemia. 04/27: MD notes: CKD, Acute respiratory failure on vent SARS-COV-2 Ag Rapid 04/19 Negative Subjective Information: Pt seen in ICU, remains intubated and per MD, pt is getting intermittent sedation. Pt is unresponsive, and does not follow commands per MD notes. Pts brother is expected to come this week from [place], MD plans to rec comfort care. Per RN, pt is for weaning trials today and versed was turned off this am per RN. Per EMR, last BM 04/25 x2, abdomen is soft w/ hypoactive bowel sounds. EN rate: 40ml (04/27); GRV: 60ml (04/27). Parviz scale: 10. market risk specialist on 04/21: Posterior scalp: Laceration; Left Lateral Forearm: skin tear; Right Lateral Forearm: skin tear; Buttocks: blanchable redness. Per RN notes, 2+ pitting edema to Bilateral feet. Current Diet Order/Nutrition Support: Jevity 1.5 at 45ml/hr, FWF 100ml Q6H via NGT Pertinent Medications: Haldol, Lovenox, SSI, Lasix. Pertinent Labs: 04/27: BG 147H, POC BG 128H, BUN 33H, Cre 1.63H Height: 5 feet/ 6.00 inches Weight: 109 pounds/ 49.977508 kilograms Body Mass Index: 17.59 kg/m2 [place]/Adjusted Body Weight: 142#/ 64.5kg NEW Estimated Energy Expenditure (kcals/day) 1365 Kcal/day (PSU for vent support, Tmax: 99'F, Ve: 8.7) Estimated Protein Required (g/day) 64-96 gm/day (1-1.5 gm/kg IBW for Renal Dz and wt gain) Estimated Fluid Required (l/day) per MD (renal disease) Problem/Etiology/Signs/Symptoms Underweight r/t chronic illness AEB fat and muscle wasting in BUE and BMI <18.5kg/m2. (*ongoing) Risk for malnutrition r/t mental status AEB confusion, poor PO intake, and poor nutrition quality of life. (*ongoing) Altered nutrition related labs r/t pathophysiological factors and renal dysfunction AEB elevated BG, BUN, SCre labs. (*new) Excessive calorie intake r/t current EN infusion rate AEB calorie intake meets >100% of estimated needs. (*new) Expected Outcomes/Goals Monitor EN tolerance and intake w/ goal of pt meeting more than 75% of estimated nutritional needs, labs trending WNL, normal GI function, skin integrity/wt maintenance. Dietitian Recommendations *Recommend: decrease EN infusion rate to not exceed estimated needs. *Recommend: Jevity 1.5 at 40ml/hr, FWF 100ml Q6H via NGT Provides: 1440 kcal, 61gm protein and 1130ml free water daily. Meets: 105% of estimated calorie needs and 95% of lower end of estimated protein needs. Follow Up High Risk: F/U in 2-3days
--- NOTE | 2021-04-27 12:52 | NUR ---
Dietitian Recommendations *Recommend: decrease EN infusion rate to not exceed estimated needs. *Recommend: Jevity 1.5 at 40ml/hr, FWF 100ml Q6H via NGT Provides: 1440 kcal, 61gm protein and 1130ml free water daily. Meets: 105% of estimated calorie needs and 95% of lower end of estimated protein needs. Please see Nutrition F/U note for details. RETIREMENT, RD
[2021-04-27] MEDS: NACL 0.9% 1,000 ML IV SCH (15:28)
--- NOTE | 2021-04-27 20:00 | NUR ---
SUCTIONED ETT VIA SPARROW WITH MOD TO LARGE THICK CREAMY MUCUS OBTAINED. ORAL CARE GIVEN. NGT FEEDING WITH JEVITY 1.5 AT 40CC/HR. RESIDUAL CHECK 40CC. ANGY SOFT WRIST RESTRAINTS ON FOR SAFETY. MARIA A PICC LINE DRSG ON DOPAMINE DRIP AT 2 MCG/KG/MIN. YOUNG CATH PATENT DRAINING CLOUDY YVONNE URINE TO GRAVITY.
[2021-04-27] MEDS: HALOPERIDOL LACTATE 5 MG/ML VIAL IVP PRN (21:17)
--- NOTE | 2021-04-27 21:17 | NUR ---
HALDOL 5 MG IVP GIVEN FOR RESTLESSNESS. DOPAMINE DRIP TITRATED UP FOR LOW BP. HS CARE. SRAVAN LEON.
[2021-04-28] VITALS (31 sets, daily range): BP systolic 88–168
--- NOTE | 2021-04-28 | NUR ---
SUCTIONED. ORAL CARE GIVEN. OPENS EYES SPON. ACCU-CHEK 153, 2 UNITS REGULAR INSULIN SQ GIVEN PER SLIDING SCALE COV. NGT FLUSHED WITH 100CC H2O.
[2021-04-28] MEDS: DOPamine PREMIX 250 ML IV PRN (01:07)
--- NOTE | 2021-04-28 03:30 | NUR ---
BP CUFF TRANSFERRED TO LEFT UPPER ARM, BETTER BP OBTAINED. DOPAMINE TITRATED TO 10 MCG/KG/MIN. HALDOL 5 MG IVP GIVEN FOR AGITATION AND RESTLESSNESS.
[2021-04-28] MEDS: HALOPERIDOL LACTATE 5 MG/ML VIAL IVP PRN ×2 (03:31→08:21)
--- NOTE | 2021-04-28 04:00 | NUR ---
SUCTIONED. TURNED. ORAL CARE RESIDUAL CHECK 60CC. DOPAMINE TITRATED DOWN TO 5 MCG/KG/MIN.
[2021-04-28] MEDS: NACL 0.9% 1,000 ML IV SCH (04:17)
--- NOTE | 2021-04-28 06:00 | NUR ---
ACCU-CHEK 150, NO INSULIN DUE PER SLIDING SCALE COV. UO GOOD. SUCTIONED AND TURNED Q2 HRS AND PRN. PULSES PALPABLE. REMAINS IN GUARDED CONDITION.
[2021-04-28] MEDS: PIPERACILLIN/TAZO 2.25G/DEX-IS 50 ML IV SCH ×3 (06:07→17:46)
[2021-04-28] MEDS: INSULIN REGULAR, HUMAN 100 UNITS/ML, 10 ML VIAL (humuLIN R) SUBCUT PRN ×2 (06:07→17:48)
[2021-04-28] MEDS: THEOPHYLLINE ANHYDROUS 80 MG/15 ML UDC PO SCH ×3 (06:08→22:20)
--- NOTE | 2021-04-28 07:39 | NUR ---
RT NOTES Abnormal breathing pattern noted, pt appears in distress, unable to do CPAP trial. RN made aware.
--- NOTE | 2021-04-28 08:15 | NUR ---
RT NOTES Dr Pak stated to hold off on CPAP trial.
[2021-04-28] MEDS: FUROSEMIDE 20 MG/2 ML VIAL IVP SCH (08:22)
[2021-04-28] MEDS: MODAFINIL 100 MG TABLET (PROVIGIL) PO SCH (08:22)
[2021-04-28] MEDS: ENOXAPARIN SODIUM 30 MG/0.3 ML SYRINGE SUBCUT SCH (08:23)
[2021-04-28] MEDS: NICOTINE 14 MG/24 HR PATCH.TD24 TD SCH (08:24)
[2021-04-28] MEDS ORDERED: KCL 20 mEq in 100 mL (PREMIX) 100 ML IV ONE (09:30)
[2021-04-28] MEDS: MORPHINE 4 MG INJ. 4 MG/ML VIAL IVP PRN ×3 (10:49→23:45)
--- NOTE | 2021-04-28 19:25 | NUR ---
PM SHIFT ASSESSMENT Pt is awake but confused. SPO2 via vent, tolerating current vent settings at this time. Skin warm and dry. IVF infusing to MARIA A PICC, no signs of infiltration. Javed catheter in place and draining to gravity. Safety precautions in place, call light within reach. Will continue to monitor.
[2021-04-29] VITALS (35 sets, daily range): BP systolic 113–164
[2021-04-29] MEDS: HALOPERIDOL LACTATE 5 MG/ML VIAL IVP PRN (01:36)
[2021-04-29] MEDS: MORPHINE 4 MG INJ. 4 MG/ML VIAL IVP PRN ×3 (04:14→15:59)
[2021-04-29] MEDS: NACL 0.9% 1,000 ML IV SCH (04:15)
[2021-04-29] MEDS: THEOPHYLLINE ANHYDROUS 80 MG/15 ML UDC PO SCH ×2 (06:12→14:40)
[2021-04-29 06:37] LABS: BASOPHILS % (AUTO) 0.3 % (0.0-2.0); EOSINOPHILS # (AUTO) 0.1 K/uL (0.0-0.4); EOSINOPHILS % (AUTO) 0.4 % (0.0-4.0); HEMATOCRIT 24.6 % (36-54); HEMOGLOBIN 8.3 g/dL (14.0-18.0); LYMPHOCYTES # (AUTO) 0.6 K/uL (1.0-5.5); LYMPHOCYTES % (AUTO) 4.3 % (20.5-51.5); MEAN CORPUSCULAR HEMOGLOBIN 31 pg (27-31); MEAN CORPUSCULAR HGB CONC 34 % (32-36); MEAN CORPUSCULAR VOLUME 93 fL (79.0-98.0); NEUTROPHILS # (AUTO) 12.2 K/uL (1.8-7.7); PLATELET COUNT (AUTO) 194 K/uL (130-430); RED BLOOD CELL COUNT(AUTO) 2.65 MIL/uL (4.2-6.2); RED CELL DISTRIBUTION WIDTH 19.3 % (9.0-15.0); WHITE BLOOD COUNT (AUTO) 13.9 K/uL (4.8-10.8)
[2021-04-29 06:48] LABS: ANION GAP 12 (5-15); CALCIUM 8.6 mg/dL (8.4-11.0); CHLORIDE 109 mmol/L (98-107); CREATININE 1.62 mg/dL (0.55-1.30); GLUCOSE 130 mg/dL (70-99); PHOSPHORUS 3.9 mg/dL (2.7-4.5); POTASSIUM 3.5 mmol/L (3.5-5.1); SODIUM SERUM 147 mmol/L (136-145); UREA NITROGEN, BLOOD 56 mg/dL (8-21)
--- NOTE | 2021-04-29 07:03 | NUR ---
OPENING NOTE: RECEIVED REPORT FROM RN USING SBAR REPORTING. ALL CARE ASSUMED.
--- NOTE | 2021-04-29 07:10 | NUR ---
ENDORSEMENT Patient care endorsed to dayshift RN using nursing SBAR.
--- NOTE | 2021-04-29 07:20 | NUR ---
RT NOTES Pt. is awake but does not appear to follow command. Per SBT, vent to CPAP 5 PS 10. No adverse reactions noted. Will monitor pt. Rn aware. @0805 Pt. cont. to tolerate CPAP well. No distress noted. Will cont. to monitor pt.
--- NOTE | 2021-04-29 07:45 | NUR ---
DR. THACKER: MD AT BEDSIDE, REPORT GIVEN, NO NEW ORDERS.
[2021-04-29 07:53] LABS: C-REACTIVE PROTEIN QUANT 10.1 mg/dL (0-0.5)
[2021-04-29] MEDS: FUROSEMIDE 20 MG/2 ML VIAL IVP SCH (08:23)
[2021-04-29] MEDS: MODAFINIL 100 MG TABLET (PROVIGIL) PO SCH (08:23)
[2021-04-29] MEDS: ENOXAPARIN SODIUM 30 MG/0.3 ML SYRINGE SUBCUT SCH (08:23)
[2021-04-29] MEDS: NICOTINE 14 MG/24 HR PATCH.TD24 TD SCH (08:24)
--- NOTE | 2021-04-29 08:31 | NUR ---
DR. EISENBERG: MD AT BEDSIDE, VERBAL REPORT GIVEN, NO NEW ORDERS AT THIS TIME.
--- NOTE | 2021-04-29 08:46 | NUR ---
MORPHINE PRN: PRN GIVEN PER ORDER FOR SEVERE PAIN AEB FLACC SCALE.
[2021-04-29] MEDS: methylPREDNISolone SOD SUCC 40 MG/ML VIAL IVP SCH (09:10)
[2021-04-29] MEDS: QUEtiapine FUMARATE 25 MG TABLET PO SCH ×2 (09:10→20:46)
--- NOTE | 2021-04-29 09:10 | NUR ---
RT NOTES Vent settings back to AC. Per Dr Pak CPAP trials no more than 2 hours.
--- NOTE | 2021-04-29 09:25 | NUR ---
CPAP TRIAL: PATIENT TOLERATED CPAP TRIAL, MD EISENBERG AWARE WILL CONTINUE TO MONITOR AT THIS TIME, NO ADVERSE EFFECTS NOTED.
[2021-04-29 10:26] LABS: ERYTHROCYTE SEDIMENTATION RATE 69 MM/HR (0-15)
--- NOTE | 2021-04-29 10:30 | NUR ---
DR. MARTINEZ: MD AT BEDSIDE, VERBAL REPORT GIVEN, NO NEW ORDERS AT THIS TIME.
--- NOTE | 2021-04-29 11:15 | NUR ---
RN ROUNDS: NEW LINENS AND GOWN PLACED, CHG BATH GIVEN, REPOSITIONED WITH PILLOWS, HEELS FLOATING, WOUND DRESSINGS CHANGED. PATIENT TOLERATED WELL. BED LOW AND LOCKED.
--- NOTE | 2021-04-29 11:47 | NUR ---
GLUCOSE: BS 130, NO INSULIN GIVEN PER PROTOCOL.
--- NOTE | 2021-04-29 15:19 | NUR ---
WOUND RE-EVALUATION: Patient received in a Festus Bed, awake, alert, confused. Patient is unable to turn in bed independently. Parviz Score is a 13. Past Medical History: COPD, Asthma, Hypertension, Renal Disease, Hyperlipidemia. Patient was admitted after falling down after a syncopal episode where he sustained an occipital laceration. Microbiology: Endotracheal sputum culture results negative. Intrinsic factors that delay wound healing: COPD, Asthma. Extrinsic factors that delay wound healing: Decreased mobility. Wound Assessment: 1. Posterior Scalp: Laceration, present on admission. Wound bed has sutures, and is approximated. No odor, no drainage. Yuliya-wound intact. Surrounding tissue has yellow tissue, with scant serous drainage. Recommend continue: Cleanse wound with normal saline. Apply sure prep to yuliya-wound. Cover with alginate dressing, then foam dressing. Perform wound care daily, and as needed for dressing soiling or dislodgement. 2. Left Lateral Forearm: Skin tear, present on admission. Wound care performed by day shift nurse. Dressing is clean dry and intact. Dressing not removed for assessment secondary to stick doing so decrease wound temperature and retard wound healing rate. Recommend continue: Cleanse wound with normal saline. Apply sure prep to yuliya-wound. Apply Hydrogel to skin tear bed. Cover with foam dressing. Perform wound care daily, and as needed for dressing soiling or dislodgement. 3. Right Anterior Forearm: Two scars, present on admission. Recommend continue: No dressings needed. Continue monitor sites every shift. 4. Right Lateral Forearm: Skin tear, present on admission. Recommend continue: Cleanse wound with normal saline. Apply sure prep to yuliya-wound. Apply Hydrogel to skin tear bed. Cover with foam dressing. Perform wound care daily, and as needed for dressing soiling or dislodgement. 5. Buttocks/Lower Buttocks near Ischia: Blanchable redness, present on admission. Recommend: Cleanse involved areas with mild soap and water. Pat dry. Apply moisture barrier cream to involved areas. Perform site care 4 times daily and as needed for soiling. Also recommend: Reposition patient [id number] only every 2 hours with pillow support and off-load pressure areas with pillows for pressure re-distribution. Offload, elevate and float bilateral heels with pillows. Perform skin care and monitor skin integrity Q shift. Use moisture barrier cream on buttocks and other moisture susceptible areas QID and as needed for soiling. Place patient on a low air-loss mattress.
--- NOTE | 2021-04-29 15:59 | NUR ---
MORPHINE PRN: PRN GIVEN PER ORDER FOR SEVERE PAIN AEB FLACC SCALE.
--- NOTE | 2021-04-29 16:49 | NUR ---
RN ROUNDS: REPOSITIONED WITH PILLOW SUPPORT, HEELS FLOATING, OCCIPITAL DRESSING CHANGED R/T DISLODGEMENT. BED LOW AND LOCKED FOR SAFETY, NO ACUTE DISTRESS NOTED. WILL CONTINUE TO MONITOR AT THIS TIME.
--- NOTE | 2021-04-29 18:20 | NUR ---
DR. MORALES: MD AT BEDSIDE, VERBAL REPORT GIVEN, NO NEW ORDERS.
[2021-04-29] MEDS: INSULIN REGULAR, HUMAN 100 UNITS/ML, 10 ML VIAL (humuLIN R) SUBCUT PRN (18:28)
--- NOTE | 2021-04-29 18:49 | NUR ---
RN ROUNDS: PATIENT STABLE IN NO ACUTE DISTRESS AND OR DISCOMFORT. BED LOW AND LOCKED FOR SAFETY.
--- NOTE | 2021-04-29 19:17 | NUR ---
CLOSING NOTE: REPORT GIVEN TO NOC NURSE. ALL CARES ENDORSED.
--- NOTE | 2021-04-29 19:30 | NUR ---
Opening Note Received report from AM nurse using SBAR approach.
--- NOTE | 2021-04-29 22:00 | NUR ---
patient is getting restless. turned and repositioned patient and pulled him up in bed.
[2021-04-30] VITALS (36 sets, daily range): BP systolic 98–165
--- NOTE | 2021-04-30 | NUR ---
Cleaned patient changed all linens and gown. Patient tolerated well and is resting in bed.
[2021-04-30] MEDS: THEOPHYLLINE ANHYDROUS 80 MG/15 ML UDC PO SCH ×4 (01:05→23:24)
[2021-04-30] MEDS: NACL 0.9% 1,000 ML IV SCH ×2 (01:05→17:05)
[2021-04-30] MEDS: INSULIN REGULAR, HUMAN 100 UNITS/ML, 10 ML VIAL (humuLIN R) SUBCUT PRN ×2 (01:09→17:57)
--- NOTE | 2021-04-30 07:15 | NUR ---
Opening Note Received plan of care via sbar from endorsing RN.
[2021-04-30] MEDS: ALBUTEROL SULFATE 0.083% 2.5 MG/3 ML VIAL.NEB INH PRN (07:44)
[2021-04-30] MEDS: QUEtiapine FUMARATE 25 MG TABLET PO SCH ×2 (08:15→23:24)
[2021-04-30] MEDS: NICOTINE 14 MG/24 HR PATCH.TD24 TD SCH (08:15)
[2021-04-30] MEDS: methylPREDNISolone SOD SUCC 40 MG/ML VIAL IVP SCH (08:15)
[2021-04-30] MEDS: ENOXAPARIN SODIUM 30 MG/0.3 ML SYRINGE SUBCUT SCH (08:16)
--- NOTE | 2021-04-30 08:26 | NUR ---
DR. KEDAR TENORIO AT BEDSIDE VERBAL REPOT GIVEN NO NEW ORDERS.
--- NOTE | 2021-04-30 08:26 | NUR ---
DR. FAINA TEONRIO AT BEDSIDE VERBAL REPORT GIVEN, SPOKE WITH RT, PATIENT TO BE PLACED ONTO CPAP X 2 HOURS THEN ABG'S, IF NUMBERS ARE WITHIN RANGE PATIENT IS CLEARED TO BE EXTUBATED.
--- NOTE | 2021-04-30 08:51 | NUR ---
DR. MARTINEZ: MD AT BEDSIDE, VERBAL REPORT GIVEN. NO NEW ORDERS.
[2021-04-30] MEDS: MODAFINIL 100 MG TABLET (PROVIGIL) PO SCH (09:00)
--- NOTE | 2021-04-30 09:47 | NUR ---
CPAP TRIAL: RT PLACED PATIENT ONTO CPAP, PATIENT DID NOT TOLERATE WELL, LOW SATURATION NOTED WITH ACCESSORY MUSCLE USE. WHEN PATIENT WAS ASKED IF HE WAS HAVING A HARD TIME BREATHING PATIENT NODDED HEAD WITH YES. RT PLACED PATIENT BACK ONTO AC MODE, RT REMAINS AT BEDSIDE, WILL MONITOR AT THIS TIME.
--- NOTE | 2021-04-30 09:54 | NUR ---
BROTHER AT BEDSIDE: PATIENTS BROTHER AT BEDSIDE, ALL QUESTIONS ANSWERED AT THIS TIME. NO CONCERNS EXPRESSED.
[2021-04-30] MEDS: MORPHINE 4 MG INJ. 4 MG/ML VIAL IVP PRN ×2 (12:33→16:40)
--- NOTE | 2021-04-30 12:34 | NUR ---
MORPHINE PRN: PRN GIVEN PER ORDER FOR SEVERE PAIN AEB FLACC SCALE.
[2021-04-30] MEDS: HALOPERIDOL LACTATE 5 MG/ML VIAL IVP PRN (14:25)
--- NOTE | 2021-04-30 14:35 | NUR ---
HALOPERIDOL PRN: PRN GIVEN FOR AGITATION WILL MONITOR.
--- NOTE | 2021-04-30 15:15 | NUR ---
DIETARY: VERBAL REPORT GIVEN, NO NEW RECOMMENDATIONS AT THIS TIME.
--- NOTE | 2021-04-30 16:30 | NUR ---
MORPHINE PRN: PRN GIVEN PER ORDER FOR SEVERE PAIN AEB FLACC SCALE.
--- NOTE | 2021-04-30 16:58 | NUR ---
Nutrition F/U Admitting Diagnosis: Heart Block Medical History Comment: Pt w/: Cardiac heart block, second and third degree, renal failure, UTI, Noncompliance, HTN, extensive COPD per MD notes. PMH: COPD, Asthma, HTN, Renal disease, Hyperlipidemia. 04/27: MD notes: CKD, Acute respiratory failure on vent SARS-COV-2 Ag Rapid 04/19 Negative Subjective Information: RD visited pt at bedside, seen intubated/sedated w/ TF infusing as per physician order. RD noted Ve on vent machine. RN reported pt has been tolerating TF without difficulties; no GRV noted. Per EMR review, CPAP trial this morning was not successful, and pt was placed back on vent. Per EMR review, TF Rate: 45 ml 7/2; GRV: 0 ml 7/2; TF Intakes: 630 ml 7/2; abd is soft and non-distended w/ active bowel sounds; last BM x2 04/29; Parviz scale: 9 -- Playground Aide note 04/29: 1. Posterior Scalp: Laceration, present on admission. 2. Left Lateral Forearm: Skin tear, present on admission. 3. Right Anterior Forearm: Two scars, present on admission. 4. Right Lateral Forearm: Skin tear, present on admission. 5. Buttocks/Lower Buttocks near Ischia: Blanchable redness, present on admission. Current TF prescription exceeds estimated nutritional needs -- provides: 1620 kcal/day, 69 gm protein/day, and 1621 ml free water/day, which meets 116% of estimated caloric needs and 108% of lower end of estimated protein needs. Current Diet Order/Nutrition Support: Jevity 1.5 at 45 ml/hr, Free Water Flush: 200 Q6hr via NGT x1 day Pertinent Medications: solu-medrol, morphine, SSI, lovenox Pertinent Labs: BG 130 H, POC BG 125 H, BUN 56 H, CRE 1.62 H, WBC 13.9 H, CRP 10.1 H Ht: 66"/5'6" Wt: 109#/49 kg Weight: 109 pounds/ 49.223656 kilograms Body Mass Index: 17.59 kg/m2 [place]/Adjusted Body Weight: 142#/ 64.5kg NEW Estimated Energy Expenditure (kcals/day) 1400 Kcal/day (PSU for vent support, Tmax: 37 degrees C, Ve: 11.3) Estimated Protein Required (g/day) 64-96 gm/day (1-1.5 gm/kg IBW for Renal Dz and wt gain) Estimated Fluid Required (l/day) per MD (renal disease) Problem/Etiology/Signs/Symptoms Underweight r/t chronic illness AEB fat and muscle wasting in BUE and BMI <18.5kg/m2. (*ongoing) Risk for malnutrition r/t mental status AEB confusion, poor PO intake, and poor nutrition quality of life. (*ongoing) Altered nutrition related labs r/t pathophysiological factors and renal dysfunction AEB elevated BG, BUN, SCre labs. (*new) Excessive calorie intake r/t current EN infusion rate AEB calorie intake meets >100% of estimated needs. (*) Expected Outcomes/Goals Monitor EN tolerance and intake w/ goal of pt meeting at least 90% of estimated nutritional needs, labs trending WNL, normal GI function, skin integrity/wt maintenance. Dietitian Recommendations * Recommend decrease EN infusion rate to not exceed estimated needs * Recommend Jevity 1.5 at 40 ml/hr (goal rate) via NGT Provides: 1440 kcal/day, 61 gm protein/day, and 730 ml free water/day Meets: 103% of estimated caloric needs and 95% of lower end of estimated protein needs Follow Up High Risk: F/U in 2-3 days
--- NOTE | 2021-04-30 17:06 | NUR ---
Dietitian Recommendations * Recommend decrease EN infusion rate to not exceed estimated needs * Recommend Jevity 1.5 at 40 ml/hr (goal rate) via NGT Provides: 1440 kcal/day, 61 gm protein/day, and 730 ml free water/day Meets: 103% of estimated caloric needs and 95% of lower end of estimated protein needs LP, RD Please refer to Nutrition F/U for details.
--- NOTE | 2021-04-30 19:03 | NUR ---
CLOSING NOTE: REPORT GIVEN TO INCOMING RN USING SBAR FORMAT, BED LOW AND LOCKED FOR SAFETY.
--- NOTE | 2021-04-30 19:30 | NUR ---
Opening Note Received report from AM nurse using SBAR approach.
[2021-05-01] VITALS (36 sets, daily range): BP systolic 103–144
--- NOTE | 2021-05-01 02:00 | NUR ---
patient had a bowel movement that was tarry black. Cleaned patient and repositioned him .Changed all linens and gown. Patient tolerated well.
[2021-05-01 06:24] LABS: BASOPHILS % (AUTO) 0.1 % (0.0-2.0); HEMOGLOBIN 7.5 g/dL (14.0-18.0); LYMPHOCYTES # (AUTO) 0.4 K/uL (1.0-5.5); LYMPHOCYTES % (AUTO) 2.6 % (20.5-51.5); MEAN CORPUSCULAR HEMOGLOBIN 31 pg (27-31); MEAN CORPUSCULAR HGB CONC 33 % (32-36); MEAN CORPUSCULAR VOLUME 96 fL (79.0-98.0); MONOCYTES # (AUTO) 1.1 K/uL (0.0-1.0); MONOCYTES % (AUTO) 6.5 % (1.7-9.3); NEUTROPHILS # (AUTO) 14.7 K/uL (1.8-7.7); NEUTROPHILS % (AUTO) 90.8 % (40.0-70.0); PLATELET COUNT (AUTO) 256 K/uL (130-430); RED BLOOD CELL COUNT(AUTO) 2.41 MIL/uL (4.2-6.2); RED CELL DISTRIBUTION WIDTH 19.4 % (9.0-15.0); WHITE BLOOD COUNT (AUTO) 16.2 K/uL (4.8-10.8)
[2021-05-01] MEDS: THEOPHYLLINE ANHYDROUS 80 MG/15 ML UDC PO SCH ×3 (06:34→23:57)
[2021-05-01 06:59] LABS: ALANINE AMINOTRANSFERASE 35 U/L (12-78); ALBUMIN 2.3 g/dL (3.4-4.8); ANION GAP 13 (5-15); ASPARTATE AMINOTRANSFERASE 38 U/L (10-37); CALCIUM 8.8 mg/dL (8.4-11.0); CHLORIDE 112 mmol/L (98-107); CREATININE 2.01 mg/dL (0.55-1.30); GLUCOSE 115 mg/dL (70-99); POTASSIUM 4.4 mmol/L (3.5-5.1); SODIUM SERUM 149 mmol/L (136-145); TOTAL BILIRUBIN 0.4 mg/dL (0.0-1.0); UREA NITROGEN, BLOOD 69 mg/dL (8-21)
[2021-05-01] MEDS: MORPHINE 4 MG INJ. 4 MG/ML VIAL IVP PRN ×3 (06:59→18:48)
--- NOTE | 2021-05-01 07:20 | NUR ---
Opening Note Received plan of care via sbar from endorsing RN.
[2021-05-01] MEDS: NICOTINE 14 MG/24 HR PATCH.TD24 TD SCH (08:19)
[2021-05-01] MEDS: methylPREDNISolone SOD SUCC 40 MG/ML VIAL IVP SCH (08:19)
[2021-05-01] MEDS: QUEtiapine FUMARATE 25 MG TABLET PO SCH ×2 (08:19→21:31)
[2021-05-01] MEDS: MODAFINIL 100 MG TABLET (PROVIGIL) PO SCH (08:19)
[2021-05-01] MEDS: ENOXAPARIN SODIUM 30 MG/0.3 ML SYRINGE SUBCUT SCH (08:21)
--- NOTE | 2021-05-01 08:59 | NUR ---
DR EISENBERG: MD AT BEDSIDE, VERBAL REPORT GIVEN, NO NEW ORDERS.
[2021-05-01] MEDS: HEPARIN SODIUM,PORCINE 5,000 UNITS/ML VIAL SUBCUT SCH ×2 (09:00→21:32)
[2021-05-01] MEDS: HALOPERIDOL LACTATE 5 MG/ML VIAL IVP PRN ×2 (09:04→15:55)
--- NOTE | 2021-05-01 09:04 | NUR ---
HALOPERIDOL PRN: PRN GIVEN FOR AGITATION WILL MONITOR.
--- NOTE | 2021-05-01 09:05 | NUR ---
HALOPERIDOL PRN: PRN GIVEN FOR AGITATION WILL MONITOR.
--- NOTE | 2021-05-01 09:31 | NUR ---
DR. MARTINEZ: MD AT BEDSIDE, VERBAL REPORT GIVEN, NO NEW ORDERS.
--- NOTE | 2021-05-01 09:53 | NUR ---
CPAP TRIAL: RT PLACED PATIENT ONTO CPAP MODE, PATIENT DID NOT TOLERATE TRIAL.
--- NOTE | 2021-05-01 09:54 | NUR ---
rt notes [id number] Pt placed on CPAP 03/08, coached pt to do deep breaths,so slowed down breathing. Pt only lasted 10minutes. Pt pull adequate volume but RR 40s and seen increased WOB, CPAP stopped. ABDULAZIZ Celeste made aware. will continue to monitor pt.
--- NOTE | 2021-05-01 11:20 | NUR ---
MORPHINE PRN: PRN GIVEN PER ORDER FOR SEVERE PAIN AEB FLACC SCALE.
--- NOTE | 2021-05-01 12:10 | NUR ---
FAMILY: BROTHER AT BEDSIDE, VERBAL UPDATE GIVEN, ALL QUESTIONS ANSWERED AT THIS TIME.
[2021-05-01] MEDS: NACL 0.9% 1,000 ML IV SCH (14:54)
--- NOTE | 2021-05-01 15:13 | NUR ---
rt notes 1513 Titrated fio2 to 30%, pt saturating 98%. RN Roula aware. will continue to monitor pt.
--- NOTE | 2021-05-01 15:55 | NUR ---
HALOPERIDOL PRN: PRN GIVEN FOR AGITATION WILL MONITOR.
--- NOTE | 2021-05-01 16:15 | NUR ---
DR. LYNN: MD AT BEDSIDE, VERBAL REPORT GIVEN, NO NEW ORDERS.
--- NOTE | 2021-05-01 17:50 | NUR ---
RN ROUNDS: PATIENT REPOSITIONED FOR COMFORT WITH PILLOWS, HEELS FLOATING, BED LOW AND LOCKED FOR SAFETY. PATIENT STABLE IN NO ACUTE DISTRESS AND OR DISCOMFORT.
--- NOTE | 2021-05-01 18:49 | NUR ---
MORPHINE PRN: PRN GIVEN PER ORDER FOR SEVERE PAIN AEB FLACC SCALE.
--- NOTE | 2021-05-01 18:55 | NUR ---
CLOSING NOTE: REPORT GIVEN TO INCOMING RN USING SBAR FORMAT, BED LOW AND LOCKED FOR SAFETY.
--- NOTE | 2021-05-01 19:30 | NUR ---
Opening Note Received report from AM nurse using SBAR approach.
[2021-05-02] VITALS (36 sets, daily range): BP systolic 108–170
--- NOTE | 2021-05-02 02:00 | NUR ---
patient had a bowel movement that was tarry black. Cleaned patient and repositioned him .Changed all linens and gown. Patient tolerated well.
[2021-05-02] MEDS: MORPHINE 4 MG INJ. 4 MG/ML VIAL IVP PRN ×2 (04:00→12:04)
[2021-05-02] MEDS: THEOPHYLLINE ANHYDROUS 80 MG/15 ML UDC PO SCH ×3 (06:50→23:09)
[2021-05-02 06:53] LABS: BASOPHILS % (AUTO) 0.1 % (0.0-2.0); HEMATOCRIT 23.7 % (36-54); HEMOGLOBIN 7.8 g/dL (14.0-18.0); LYMPHOCYTES # (AUTO) 0.8 K/uL (1.0-5.5); LYMPHOCYTES % (AUTO) 4.7 % (20.5-51.5); MEAN CORPUSCULAR HEMOGLOBIN 32 pg (27-31); MEAN CORPUSCULAR HGB CONC 33 % (32-36); MEAN CORPUSCULAR VOLUME 97 fL (79.0-98.0); MONOCYTES # (AUTO) 1.1 K/uL (0.0-1.0); MONOCYTES % (AUTO) 6.9 % (1.7-9.3); NEUTROPHILS # (AUTO) 14.6 K/uL (1.8-7.7); NEUTROPHILS % (AUTO) 88.3 % (40.0-70.0); PLATELET COUNT (AUTO) 289 K/uL (130-430); RED BLOOD CELL COUNT(AUTO) 2.46 MIL/uL (4.2-6.2); RED CELL DISTRIBUTION WIDTH 19.5 % (9.0-15.0); WHITE BLOOD COUNT (AUTO) 16.5 K/uL (4.8-10.8)
--- NOTE | 2021-05-02 07:15 | NUR ---
OPENING NOTE: REPORT RECEIVED FROM RN USING SBAR REPORTING. ALL CARE ASSUMED.
[2021-05-02 07:16] LABS: ALANINE AMINOTRANSFERASE 39 U/L (12-78); ALBUMIN 2.3 g/dL (3.4-4.8); ANION GAP 12 (5-15); ASPARTATE AMINOTRANSFERASE 37 U/L (10-37); CALCIUM 8.4 mg/dL (8.4-11.0); CHLORIDE 112 mmol/L (98-107); CREATININE 2.09 mg/dL (0.55-1.30); GLUCOSE 136 mg/dL (70-99); POTASSIUM 4.6 mmol/L (3.5-5.1); SODIUM SERUM 148 mmol/L (136-145); TOTAL BILIRUBIN 0.3 mg/dL (0.0-1.0); UREA NITROGEN, BLOOD 75 mg/dL (8-21)
--- NOTE | 2021-05-02 07:34 | NUR ---
Closing Note Endorsed report to AM nurse using SBAR approach
[2021-05-02] MEDS: MODAFINIL 100 MG TABLET (PROVIGIL) PO SCH (09:14)
[2021-05-02] MEDS: methylPREDNISolone SOD SUCC 40 MG/ML VIAL IVP SCH (09:14)
[2021-05-02] MEDS: QUEtiapine FUMARATE 25 MG TABLET PO SCH ×2 (09:14→20:18)
[2021-05-02] MEDS: NICOTINE 14 MG/24 HR PATCH.TD24 TD SCH (09:14)
[2021-05-02] MEDS: NACL 0.9% 1,000 ML IV SCH (09:16)
[2021-05-02] MEDS: HEPARIN SODIUM,PORCINE 5,000 UNITS/ML VIAL SUBCUT SCH ×2 (09:18→20:20)
[2021-05-02] MEDS: HALOPERIDOL LACTATE 5 MG/ML VIAL IVP PRN ×2 (09:19→19:53)
--- NOTE | 2021-05-02 09:30 | NUR ---
rt notes 0930 Pt tried on CPAP, pt lasted for 5 minutes. RR increased to 40s. CPAP trial terminated. will try again later. ABDULAZIZ Locke aware.
--- NOTE | 2021-05-02 11:46 | NUR ---
rt notes 1146 Titrated fio2 to 35%. pt saturation 100%. will continue to monitor pt. ABDULAZIZ Locke aware.
--- NOTE | 2021-05-02 11:54 | NUR ---
rt notes 1154 Tried again pt on CPAP trial. pt tolerating well. 99% saturation, will continue to monitor pt. ABDULAZIZ Locke aware.
--- NOTE | 2021-05-02 14:06 | NUR ---
rt notes 1406 Pt CPAP trial terminated, saturation dropped to 70s and WOB increased. will continue to monitor pt. ABDULAZIZ Locke aware.
[2021-05-02] MEDS: INSULIN REGULAR, HUMAN 100 UNITS/ML, 10 ML VIAL (humuLIN R) SUBCUT PRN (17:45)
--- NOTE | 2021-05-02 19:15 | NUR ---
change of shift.ett/ogt;rt.nares.intact.vent settings;tv:450,fio-2%=35%,a/c;16,peep;5.pt.presents picc line location rt.bicept intact;iv fluids infusing.pt.presents diaz cath intact urine content present.pt.presents restraint wrist bilateral in place.02-sat%=96%.call light w/in access of the pt.
--- NOTE | 2021-05-02 20:00 | NUR ---
pt.assessed.v/s assessed values w/in normal limits.ett/ogt intact i have attended to the oral care/suction.picc line intact iv fluids infusing. og-tube feed infusing.diaz cath intact urine content presents.pt.assessed for cleanliness.pt.repositioned.per flacc pain mgx pt.absent facial grimaces/body posturing.restraints wrist bilateral in place skin/circulation wnl.general status stable.respiratory status stable;20-sat=96%.call light placed w/in access of the pt. Addendum: 05/03/21 at 0020 by Jules Walters RN pt.presents affect;restless.i have administered haldol;5mg ivp.per protocol.
--- NOTE | 2021-05-02 21:00 | NUR ---
2100pmedications administered via og-tube.og-tube flushed w/out resistance.ogt tube feed residuals;note:5ml.per flacc pain mgx pt.absent facial grimaces/body posturing.call light placed w/in access of the pt.
--- NOTE | 2021-05-02 22:00 | NUR ---
pt.assessed.v/s assessed values wnl.ett/ogt intact i have attended to the oral care/suction.picc line intact iv infusing. diaz cath intact urine content present.restraints wrist bilateral in place skin/circulation wnl.per flacc pain mgx pt.absent facial grimaces/body posturing.general status stable.respiratory sattus stable 02-sat%=96%.call light placed w/in acess of the pt.
[2021-05-03] VITALS (36 sets, daily range): BP systolic 94–139
--- NOTE | 2021-05-03 | NUR ---
pt.assessed.v/s assessed values wnl.ett/ogt intact i have attended to the oral care/suction.picc line intact iv fluids infusing. diaz cath intact urine content present.per flacc pain mgx pt.absent facial grimaces/body posturing.pt.assessed for cleanliness.pt.repositioned.restraints wrist bilateral in place skin/circulation wnl.general status stable.respiratory status stable 02-sat%=96%.call light place w/in access of the pt. Addendum: 05/03/21 at 0013 by Jules Walters RN i have administered theophylline via ogt tube.ogt tube flushed w/out resistance.og-tube feed residuals;note 5ml. blood glucose assessed value 110mg/dl.
--- NOTE | 2021-05-03 02:00 | NUR ---
pt.assessed.ett/ogt intact.i have attended to the oral care/suction.picc line intact iv fluids infusing.ogt tube feed infusing. pt.assessed for cleanlness.pt.repositioned.per flacc pain mgx pt.absent facial grimaces/body posturing.general status stable. respiratpory status stable.02-sat%=96%.call light places w/in access of the pt.
--- NOTE | 2021-05-03 04:00 | NUR ---
pt.assessed.v/s assessed values wnl.ett/ogt intact.i have attended to the oral care/suction.og-tube feed infusing. picc line intact iv fluids infusing.diaz cath intact urine content present.per flacc pain mgx pt.absent facial grimaces/body posturing.pt.assessed for cleanliness.pt.repositioned.general status stable.respiratory status stable.o2-sat%=98%.call light placed w/in access of the pt.
[2021-05-03] MEDS: NACL 0.9% 1,000 ML IV SCH ×2 (05:18→23:00)
[2021-05-03] MEDS: THEOPHYLLINE ANHYDROUS 80 MG/15 ML UDC PO SCH ×2 (05:18→15:18)
--- NOTE | 2021-05-03 06:30 | NUR ---
pt.assessed.v/s assessd values wnl.ett/ogt intact.i have attended to the oral care/suction.blood glucose assessed value; 129mg/dl.pt.assessed for cleanliness pt.cleaned/repositioned.per flacc pain mgx pt.absent facial grimaces/body posturing. general status stable.respiratory status stable.o2-sat%=96%,restraints wrist bilateral in place skin/circulation wnl.call light placed w/in access of the pt.
[2021-05-03 06:49] LABS: BASOPHILS % (AUTO) 0.1 % (0.0-2.0); HEMATOCRIT 23.9 % (36-54); HEMOGLOBIN 7.7 g/dL (14.0-18.0); LYMPHOCYTES # (AUTO) 0.4 K/uL (1.0-5.5); LYMPHOCYTES % (AUTO) 2.9 % (20.5-51.5); MEAN CORPUSCULAR HEMOGLOBIN 31 pg (27-31); MEAN CORPUSCULAR HGB CONC 32 % (32-36); MEAN CORPUSCULAR VOLUME 96 fL (79.0-98.0); MONOCYTES # (AUTO) 0.9 K/uL (0.0-1.0); MONOCYTES % (AUTO) 6.1 % (1.7-9.3); NEUTROPHILS # (AUTO) 13.7 K/uL (1.8-7.7); NEUTROPHILS % (AUTO) 90.9 % (40.0-70.0); PLATELET COUNT (AUTO) 294 K/uL (130-430); RED BLOOD CELL COUNT(AUTO) 2.49 MIL/uL (4.2-6.2); RED CELL DISTRIBUTION WIDTH 19.4 % (9.0-15.0); WHITE BLOOD COUNT (AUTO) 15.1 K/uL (4.8-10.8)
[2021-05-03 07:29] LABS: ALANINE AMINOTRANSFERASE 42 U/L (12-78); ALBUMIN 2.3 g/dL (3.4-4.8); ANION GAP 10 (5-15); ASPARTATE AMINOTRANSFERASE 34 U/L (10-37); CALCIUM 8.2 mg/dL (8.4-11.0); CHLORIDE 113 mmol/L (98-107); CREATININE 2.01 mg/dL (0.55-1.30); GLUCOSE 130 mg/dL (70-99); POTASSIUM 4.5 mmol/L (3.5-5.1); SODIUM SERUM 148 mmol/L (136-145); TOTAL BILIRUBIN 0.4 mg/dL (0.0-1.0); UREA NITROGEN, BLOOD 77 mg/dL (8-21)
[2021-05-03] MEDS: MORPHINE 4 MG INJ. 4 MG/ML VIAL IVP PRN ×3 (07:29→22:32)
[2021-05-03] MEDS: NICOTINE 14 MG/24 HR PATCH.TD24 TD SCH (08:42)
[2021-05-03] MEDS: MODAFINIL 100 MG TABLET (PROVIGIL) PO SCH (08:42)
[2021-05-03] MEDS: QUEtiapine FUMARATE 25 MG TABLET PO SCH ×2 (08:42→21:27)
[2021-05-03] MEDS: methylPREDNISolone SOD SUCC 40 MG/ML VIAL IVP SCH (08:42)
[2021-05-03] MEDS: HEPARIN SODIUM,PORCINE 5,000 UNITS/ML VIAL SUBCUT SCH ×2 (08:43→21:31)
[2021-05-03] MEDS: INSULIN REGULAR, HUMAN 100 UNITS/ML, 10 ML VIAL (humuLIN R) SUBCUT PRN ×2 (12:37→17:55)
--- NOTE | 2021-05-03 13:16 | NUR ---
Nutrition F/U Admitting Diagnosis: Heart Block Medical History Comment: Pt w/: Cardiac heart block, second and third degree, renal failure, UTI, Noncompliance, HTN, extensive COPD per MD notes. PMH: COPD, Asthma, HTN, Renal disease, Hyperlipidemia. 04/27: MD notes: CKD, Acute respiratory failure on vent SARS-COV-2 Ag Rapid 04/19 Negative Subjective Information: Pt seen during bedside visit, EN infusing as ordered. Pt remains in ICU, failed CPAP trials per MD notes. Pt is awake and able to follow commands, but failing CPAP trials consistently and becomes agitated quickly. Per EMR review, BM 05/03 x1, abdomen is firm and distended. EN rate: 40ml (05/03, since 05/01); GRV: 10ml (05/02). Parviz scale: 9. Pt was seen by wound care technician for re-eval 04/29: 1. Posterior Scalp: Laceration, present on admission. 2. Left Lateral Forearm: Skin tear, present on admission. 3. Right Anterior Forearm: Two scars, present on admission. 4. Right Lateral Forearm: Skin tear, present on admission. 5. Buttocks/Lower Buttocks near Ischia: Blanchable redness, present on admission. Per RN notes, 2+ pitting edema to bilateral feet, and bilateral hand. Current EN regimen remains adequate and is meeting calorie and protein needs. Fluid intake is seemingly excessive d/t high water flush. Decreasing water flush is warranted. Current Diet Order/Nutrition Support: Jevity 1.5 at 40 ml/hr, Free Water Flush: 400 Q6hr (per physician) via NGT x1 day Pertinent Medications: solu-medrol, SSI, Heparin, Haldol Pertinent Labs: 05/03 WBC 15.1H, Na 148H, BG 130H, POC BG 129H, BUN 77H, Cre 2.01H Ht: 66"/5'6" Wt: 109#/49 kg. New weight: 112#/ 50.859 kg (04/22) --stable Weight: 109 pounds/ 49.256253 kilograms Body Mass Index: 17.59 kg/m2. New BMI: 18.1 kg/m2 (04/22). [place]/Adjusted Body Weight: 142#/ 64.5kg Estimated Energy Expenditure (kcals/day) (RD not able to assess new vent settings during this visit) 1400 Kcal/day (PSU 2003b for vent support, Tmax: 37 degrees C, Ve: 11.3) Estimated Protein Required (g/day) 64-96 gm/day (1-1.5 gm/kg IBW for Renal Dz and wt gain) Estimated Fluid Required (l/day) per MD (renal disease) or 1.4L (1mlc/calorie for maintenance) Problem/Etiology/Signs/Symptoms Underweight r/t chronic illness AEB fat and muscle wasting in BUE and BMI <18.5kg/m2. (*ongoing) Risk for malnutrition r/t mental status AEB confusion, poor PO intake, and poor nutrition quality of life. (*ongoing) Altered nutrition related labs r/t pathophysiological factors and renal dysfunction AEB elevated BG, BUN, SCre labs. (*ongoing) Excessive calorie intake r/t current EN infusion rate AEB calorie intake meets >100% of estimated needs. (*resolved) Excessive fluid intake r/t current water flush order AEB fluid intake meets >125% of needs. (*New) Expected Outcomes/Goals Monitor EN tolerance and intake w/ goal of pt meeting at least 90% of estimated nutritional needs, labs trending WNL, normal GI function, skin integrity/wt maintenance. Dietitian Recommendations * Recommend decrease water flush rate (180ml Q6H) to not exceed estimated needs * Recommend continue Jevity 1.5 at 40 ml/hr (goal rate) via NGT Provides: 1440 kcal/day, 61 gm protein/day, and 730 ml free water/day Meets: 103% of estimated caloric needs and 95% of lower end of estimated protein needs Follow Up High Risk: F/U in 2-3 days
--- NOTE | 2021-05-03 13:24 | NUR ---
Dietitian Recommendations * Recommend decrease water flush rate (180ml Q6H) to not exceed estimated needs * Recommend continue Jevity 1.5 at 40 ml/hr (goal rate) via NGT Provides: 1440 kcal/day, 61 gm protein/day, and 730 ml free water/day Meets: 103% of estimated caloric needs and 95% of lower end of estimated protein needs Please see Nutrition F/U note for details SANIYA, RD
[2021-05-03] MEDS: HALOPERIDOL LACTATE 5 MG/ML VIAL IVP PRN (15:40)
--- NOTE | 2021-05-03 20:00 | NUR ---
PATIENT WAS ACCEPTED AND ASSESSMENT WAS DONE , PATIENT WAS IN SOFT WRIST RESTRAINT SECURED , LETHARGIC WILL RESPOND WHEN NAME IS CALL, GEORGE PATIENT TO THE RIGHT SIDE TO CLEAN , PATIENT HAD STOOLING ON SELF AT THAT TIME PATIENT WAS ABLE TO SELF EXTUBATE HIMSELF THIS HAD OCCURED AT THE TIME 2030 IN THIS POSITION WAS ABLE TO GET TO THE TUBE EASILY , RESP TEAM WAS CALL, ATTEMPT TO BAG THE PATIENT AAND THEN AN NON-REBREATHER MASK WAS APPLIED , NOTICE PATIENT LOTS OF SECRETION SUCTION ORAL CAVITY OBTAINED SOME THICK DOWNING SECRETION PATIENT DID NOT SOUND ANY CLEARER , NEED ENT SUCTION THE ER MD WAS CALL AND PATIENT BROTHER WAS ALSO CALL FOR OTHER FORM AN DNR STATUS, WAS UNABLE TO CONTACT THE BROTHER , THEREFOR THE PATIENT WAS INTUBATE WAS GIVEN SEDATION MEDICATION BEFORE INTUBATION , 7.5 TUBE WAS USED AT 24 CM OF THE LIP COMPLETED AT 2100, CHEST X-RAY WILL BE DONE TO CONFIRM PLACEMENT PLACE BACK ON VENT SAME SETTING EXCEPT FIO2 SET AT 50% WILL WEAN LATER , PATIENT WAS ABLE TO TOLERATE THE PROCEDURE NO COMPLICATION, STABLE
--- NOTE | 2021-05-03 20:33 | NUR ---
[facility] [phone] SPOKE WITH JOSE
--- NOTE | 2021-05-03 20:35 | NUR ---
Pt agitated and restless, pt self extubated. Provided supplemental oxygen via non rebreather mask at 100%. RT at the bedside, ER doctor notified. Dr. Valadez (telephone recorder) paged. Called brother Shahid to inform of event, Shahid stated he wanted pt to be re-intubated. Called Dr. Hernandez (ER doctor) for intubation.
--- NOTE | 2021-05-03 21:00 | NUR ---
CHEST X-RAY WAS DONE DR MENDEZ WILL CHECK THE FILM, STABLE PATIENT HAS BEEN RESTING QUIETLY NO SEDATION OF MEDICATION DIMA GIVEN AND NONE WAS ORDER, HAS STANDARD ORDER FOR MORPHINE 4MG IV TO GIVE IF NEED , STABLE
--- NOTE | 2021-05-03 22:30 | NUR ---
PATIENT AWAKE AND RESTLESS WAS GIVEN MORPHING 4MG IV , PATIENT SEEMED TO RESPOND TO THE MEDICATION WAS MORE RELAXED AND SLEEPING , THE FIO2 50% REMAINED NO CHANGE, STABLE
[2021-05-04] VITALS (34 sets, daily range): BP systolic 88–132
--- NOTE | 2021-05-04 | NUR ---
AM CARE HAD BEEN GIVEN A VERY LARGE BLACK STOOL BM WAS CLEAN OFF THE PATIENT NO GITATION OR RESTLESS, REMAINED CALM AND RESTING ALSO NOTICE RIGHT WAS OZZING SEROUSN DRAINAGE FROM A SKIN TEAR SOAK UPTHE BED LINEN ON THE RIGHT SIDE OF BED HAS A SKIN TEAR ON THE LEFT HAND AERA LESS DRAINAGE BOTH МАРИЯ WERE CHANGE AND THICK DRESSING APPLIED REMAIN IN SOFT WRIST RESTRAINT , PATIENT WILL TRIED TO PULL OUT THE ORAL TUBE NO SKIN BREAKDOWN NOTICE ON THE SACRUM STABLE SLEEPING AFTER ALL DRESSING WERE CHANGE, STABLE
--- NOTE | 2021-05-04 03:10 | NUR ---
MORPHINE 4 MG IV WAS GIVEN FOR CALMNESS ONLY LAST FOR 30 MIN [PATIENT AWAKE UNABLE TO RELAXED WAS TRYING TO GET OUT OF BED KEPT LENDING TO THE RIGHT SIDE OF THE BED , THIS WAS HE WAS ABLE TO EXTUBATE WILL TURN TO THE LEFT WILL TRIED TO LOOK TO THE RIGHT WILL REPOND WITH EYE OPEN WHEN SPOKE TO RESTLESS MORPHINE SHOW VERY LITTLE EFFECTS , STABLE
[2021-05-04] MEDS: MORPHINE 4 MG INJ. 4 MG/ML VIAL IVP PRN ×2 (03:13→18:35)
--- NOTE | 2021-05-04 05:00 | NUR ---
PATIENT HAS HARD TIME BREATHING SAT AT 1005 USING ABDOMEN MUSCLE VENT SET AT TV 450 A/C 16 PEEP 5.0 AND FIO2 50% , MAY NEED CHANGE WITH THE VENT NO ABG HAS BEEN DONE ON THE PATIENT AFTER INTUBATED OR ANY BREATHING TREAMENT THIS PATIENT HAD LOTS SECRTION IN THE LUNG AND NEED SOME DHANGES WITH THE VENT, STABLE WILL CONTINUED WITH PLAN OF CARE WITH THE PATIENT WILL ALSO MAKE CONDITION WITH PATIENT FOR HOW LONG PATIENT WILL STAY IN THE HOSPITAL, STABLE
[2021-05-04 06:19] LABS: HEMATOCRIT 25.3 % (36-54); HEMOGLOBIN 8.1 g/dL (14.0-18.0); MEAN CORPUSCULAR HEMOGLOBIN 31 pg (27-31); MEAN CORPUSCULAR HGB CONC 32 % (32-36); MEAN CORPUSCULAR VOLUME 98 fL (79.0-98.0); PLATELET COUNT (AUTO) 314 K/uL (130-430); RED BLOOD CELL COUNT(AUTO) 2.59 MIL/uL (4.2-6.2); RED CELL DISTRIBUTION WIDTH 19.9 % (9.0-15.0)
[2021-05-04 06:32] LABS: ALANINE AMINOTRANSFERASE 44 U/L (12-78); ALBUMIN 2.2 g/dL (3.4-4.8); ANION GAP 15 (5-15); ASPARTATE AMINOTRANSFERASE 29 U/L (10-37); CHLORIDE 111 mmol/L (98-107); CREATININE 1.97 mg/dL (0.55-1.30); GLUCOSE 168 mg/dL (70-99); POTASSIUM 4.4 mmol/L (3.5-5.1); SODIUM SERUM 148 mmol/L (136-145); TOTAL BILIRUBIN 0.4 mg/dL (0.0-1.0); UREA NITROGEN, BLOOD 80 mg/dL (8-21)
[2021-05-04] MEDS: INSULIN REGULAR, HUMAN 100 UNITS/ML, 10 ML VIAL (humuLIN R) SUBCUT PRN ×2 (06:32→18:04)
--- NOTE | 2021-05-04 07:35 | NUR ---
RT NOTES Unable to do CPAP trial at this time, pt is tachypneic.
[2021-05-04] MEDS: ALBUTEROL SULFATE 0.083% 2.5 MG/3 ML VIAL.NEB INH PRN (07:40)
[2021-05-04] MEDS ORDERED: VECURONIUM BROMIDE 10 MG/VIAL (NORCURON) IVP ONE (07:58)
[2021-05-04 08:32] LABS: BAND % (MANUAL) 13 % (0-6); BASOPHILS % (MANUAL) 0 % (0-2); CORRECTED WHITE BLOOD COUNT 19.1 K/uL (4.5-11.0); EOSINOPHILS % (MANUAL) 0 % (0-7); LYMPHOCYTES % (MANUAL) 3 % (20-46); MONOCYTES % (MANUAL) 2 % (0-11)
[2021-05-04] MEDS: HEPARIN SODIUM,PORCINE 5,000 UNITS/ML VIAL SUBCUT SCH (09:00)
[2021-05-04] MEDS: QUEtiapine FUMARATE 25 MG TABLET PO SCH ×2 (09:06→20:31)
[2021-05-04] MEDS: MODAFINIL 100 MG TABLET (PROVIGIL) PO SCH (09:06)
[2021-05-04] MEDS: methylPREDNISolone SOD SUCC 40 MG/ML VIAL IVP SCH (09:06)
[2021-05-04] MEDS: NICOTINE 14 MG/24 HR PATCH.TD24 TD SCH (09:08)
--- NOTE | 2021-05-04 11:20 | NUR ---
RT NOTES Per SBT order, vent to CPAP 5 PS 10. No adverse reactions noted. Will monitor pt. RN made aware.
--- NOTE | 2021-05-04 11:45 | NUR ---
RT NOTES Pt. cont. to tolerate CPAP. No distress noted. H.R 87 R.R 24 Sat 99% spont. Vt 459. Will cont. to monitor pt.
--- NOTE | 2021-05-04 13:35 | NUR ---
RT NOTES R.R is now elevated, vent settings back to AC.
[2021-05-04] MEDS: THEOPHYLLINE ANHYDROUS 80 MG/15 ML UDC PO SCH ×3 (15:00→23:38)
[2021-05-04] MEDS: NACL 0.9% 1,000 ML IV SCH (16:46)
--- NOTE | 2021-05-04 19:30 | NUR ---
PM ASSESSMENT REPORT RECEIVED FROM STARLA RN. PT RECEIVED IN BED WITH EYES OPEN, RESPONDING TO VERBAL STIMULATION. VSS, NO S/S OF ACUTE DISTRESS NOTED. PT INTUBATED, VENT SETTINGS: AC 16, TV 450, FIO2 35%, PEEP 5. 3RD DEGREE HEART BLOCK ON MONITOR. MARIA A PICC IN PLACE INFUSING IVF PER ORDERS. R NARE NGT IN PLACE RUNNING TF PER ORDERS. BILATERAL SOFT WRIST RESTRAINTS IN PLACE, NO S/S OF INJURY NOTED. YOUNG CATH DRAINING URINE TO GRAVITY. HOB ELEVATED, BED IN LOWEST POSITION, CALL LIGHT IN REACH. WILL CONTINUE TO MONITOR PT.
--- NOTE | 2021-05-04 21:00 | NUR ---
CHG PT HAD MODERATE AMOUNT OF BLACK STOOL AT THIS TIME. CHG BATH GIVEN AT THIS TIME. VICTOR MANUEL CARE PROVIDED AND LINENS CHANGED. PT TOLERATED WELL. WILL CONTINUE TO MONITOR PT.
--- NOTE | 2021-05-04 23:00 | NUR ---
ENDORSEMENT BEDSIDE REPORT GIVEN TO MARY CINTRON FOR ASSUMPTION OF CARE.
[2021-05-04] MEDS: HALOPERIDOL LACTATE 5 MG/ML VIAL IVP PRN (23:39)
[2021-05-05] VITALS (22 sets, daily range): BP systolic 107–152
[2021-05-05] MEDS: MORPHINE 4 MG INJ. 4 MG/ML VIAL IVP PRN (03:21)
[2021-05-05] MEDS: THEOPHYLLINE ANHYDROUS 80 MG/15 ML UDC PO SCH ×2 (06:01→15:00)
[2021-05-05] MEDS: INSULIN REGULAR, HUMAN 100 UNITS/ML, 10 ML VIAL (humuLIN R) SUBCUT PRN (06:04)
[2021-05-05 07:04] LABS: BASOPHILS % (AUTO) 0.2 % (0.0-2.0); HEMATOCRIT 25.3 % (36-54); HEMOGLOBIN 8.1 g/dL (14.0-18.0); LYMPHOCYTES # (AUTO) 0.2 K/uL (1.0-5.5); LYMPHOCYTES % (AUTO) 1.3 % (20.5-51.5); MEAN CORPUSCULAR HEMOGLOBIN 31 pg (27-31); MEAN CORPUSCULAR HGB CONC 32 % (32-36); MEAN CORPUSCULAR VOLUME 98 fL (79.0-98.0); MONOCYTES # (AUTO) 0.5 K/uL (0.0-1.0); MONOCYTES % (AUTO) 3.7 % (1.7-9.3); NEUTROPHILS # (AUTO) 13.4 K/uL (1.8-7.7); NEUTROPHILS % (AUTO) 94.8 % (40.0-70.0); PLATELET COUNT (AUTO) 263 K/uL (130-430); RED BLOOD CELL COUNT(AUTO) 2.58 MIL/uL (4.2-6.2); RED CELL DISTRIBUTION WIDTH 19.8 % (9.0-15.0); WHITE BLOOD COUNT (AUTO) 14.2 K/uL (4.8-10.8)
--- NOTE | 2021-05-05 07:06 | NUR ---
ENDORSEMENT Patient care endorsed to dayshift RN using nursing SBAR.
--- NOTE | 2021-05-05 07:20 | NUR ---
RT NOTES Unable to do CPAP trial due to abnormal breathing pattern noted.
[2021-05-05 07:21] LABS: ALANINE AMINOTRANSFERASE 50 U/L (12-78); ALBUMIN 1.9 g/dL (3.4-4.8); ANION GAP 12 (5-15); CALCIUM 8.1 mg/dL (8.4-11.0); CHLORIDE 113 mmol/L (98-107); CREATININE 2.12 mg/dL (0.55-1.30); GLUCOSE 182 mg/dL (70-99); SODIUM SERUM 148 mmol/L (136-145); TOTAL BILIRUBIN 0.4 mg/dL (0.0-1.0); UREA NITROGEN, BLOOD 86 mg/dL (8-21)
[2021-05-05 08:11] LABS: ASPARTATE AMINOTRANSFERASE 101 U/L (10-37)
[2021-05-05] MEDS: methylPREDNISolone SOD SUCC 40 MG/ML VIAL IVP SCH (08:36)
[2021-05-05] MEDS: NICOTINE 14 MG/24 HR PATCH.TD24 TD SCH (08:37)
[2021-05-05] MEDS: MODAFINIL 100 MG TABLET (PROVIGIL) PO SCH (08:37)
[2021-05-05] MEDS: QUEtiapine FUMARATE 25 MG TABLET PO SCH (08:37)
[2021-05-05] MEDS ORDERED: MORPHINE SULFATE IN 0.9 % NACL 100 ML IV PRN ×2 (10:30→12:15)
[2021-05-05] MEDS ORDERED: NALOXONE HCL 0.4 MG/ML AMP (NARCAN) IVP PRN (10:30)
[2021-05-05] MEDS ORDERED: MORPHINE SULFATE IN 0.9 % NACL 100 ML IV ONE (10:55)
[2021-05-05] MEDS: NACL 0.9% 1,000 ML IV SCH (11:10)
--- NOTE | 2021-05-05 11:45 | NUR ---
RT NOTES RN to notify RT when to carryout extubation order.
--- NOTE | 2021-05-05 13:20 | NUR ---
RT NOTES Spoke to Rn regarding extubation, will call when to extubate pt.
--- NOTE | 2021-05-05 14:25 | NUR ---
RT NOTES Per RNkaleigh to extubate pt. now. Carried out as ordered.
--- NOTE | 2021-05-05 14:43 | NUR ---
patient terminally extubated, 2 liters nasal cannula saturation sustained 60%. maximum morphine drip 20mg/hr. patient breathing tachypneic. paged MD gomez, telephone order received ativan 1 mg ivpQ 1 hrs prn. noted and carried out.
[2021-05-05] MEDS ORDERED: LORazepam 2 MG/ML VIAL IVP PRN (14:45)
[2021-05-05] MEDS: HALOPERIDOL LACTATE 5 MG/ML VIAL IVP PRN (14:45)
--- NOTE | 2021-05-05 15:00 | NUR ---
RN NOTES: 2 RN witness . patient @ 1500, no pulses, no blood pressure, no respiration , no reflexes noted.
--- NOTE | 2021-05-05 15:30 | NUR ---
[employer] [facility] CALLED [facility] procurement agency contacted by JULISA. Case #CC [id number].
--- NOTE | 2021-05-05 15:36 | NUR ---
[employer] MUSIC JOURNALIST went to ICU to see another patient and was told ptEsequiel Bocanegra just at 1500. Edinson Reynaga called brother Aly in [place] to notify him and then handed the phone to MUSIC JOURNALIST who asked pt's brother if he had a mortuary in mind. Aly did not. MUSIC JOURNALIST offered to email him a list of mortuaries in the area, but brother Aly stated he did not have access to a computer. MUSIC JOURNALIST asked if she could call him with some numbers. Brother Aly thanked MUSIC JOURNALIST for calling him back and stated he preferred cremation phone numbers. MUSIC JOURNALIST gave Aly the phone number for the [employer], and for [employer], [phone]. Aly will call MUSIC JOURNALIST or [employer] once he makes a few phone calls. MUSIC JOURNALIST will remain available as needed. MUSIC JOURNALIST called ICU and shared above mentioned info with Yaneli in ICU.
--- NOTE | 2021-05-05 15:45 | NUR ---
VALVE ASSEMBLER CALLED [facility] Department of Enrollment Representative called contacted by . Spoke with NATALIO. NO Case#. Family notified by CANDICE CINTRON.
--- NOTE | 2021-05-05 17:30 | NUR ---
PATIENT REMAINED SENT TO BODY HOLD. NO BELONGINGS NOTED.
== END 2021-05-05 15:00 | DRG 870 ==
LOC: SED 01:16 → SIC 06:07
PROVIDERS: ADMIT Internal Medicine Hospice and Palliative Medicine; ATTEND Internal Medicine Hospice and Palliative Medicine
PROC: 0HQ0XZZ Repair Scalp Skin, External Approach (ICD-10-PCS; 2021-04-19)
PROC: 5A1955Z Respiratory Ventilation, Greater than 96 Consecutive Hours (ICD-10-PCS; principal; 2021-04-24)
PROC: 0BJ08ZZ Inspection of Tracheobronchial Tree, Via Natural or Artificial Opening Endoscopic (ICD-10-PCS; 2021-04-24)
PROC: 02HV33Z Insertion of Infusion Device into Superior Vena Cava, Percutaneous Approach (ICD-10-PCS; 2021-04-24)
PROC: 0BH17EZ Insertion of Endotracheal Airway into Trachea, Via Natural or Artificial Opening (ICD-10-PCS; 2021-04-24)
DX: A41.9 Sepsis, unspecified organism (principal); G93.41 Metabolic encephalopathy; E43 Unspecified severe protein-calorie malnutrition; J96.20 Acute and chronic respiratory failure, unspecified whether with hypoxia or hypercapnia; J69.0 Pneumonitis due to inhalation of food and vomit; N17.0 Acute kidney failure with tubular necrosis; I44.2 Atrioventricular block, complete; N39.0 Urinary tract infection, site not specified; J44.1 Chronic obstructive pulmonary disease with (acute) exacerbation; E87.2 Acidosis; I42.9 Cardiomyopathy, unspecified; J44.0 Chronic obstructive pulmonary disease with (acute) lower respiratory infection; J90 Pleural effusion, not elsewhere classified; N17.9 Acute kidney failure, unspecified; Z68.1 Body mass index [BMI] 19.9 or less, adult; Z99.11 Dependence on respirator [ventilator] status; E78.5 Hyperlipidemia, unspecified; S01.01XA Laceration without foreign body of scalp, initial encounter; X58.XXXA Exposure to other specified factors, initial encounter; I44.1 Atrioventricular block, second degree; F03.90 Unspecified dementia, unspecified severity, without behavioral disturbance, psychotic disturbance, mood disturbance, and anxiety; D64.9 Anemia, unspecified; D69.6 Thrombocytopenia, unspecified; E83.52 Hypercalcemia; E87.6 Hypokalemia; F10.10 Alcohol abuse, uncomplicated; Y90.9 Presence of alcohol in blood, level not specified; F17.210 Nicotine dependence, cigarettes, uncomplicated; I25.10 Atherosclerotic heart disease of native coronary artery without angina pectoris; I27.29 Other secondary pulmonary hypertension; I70.0 Atherosclerosis of aorta; K56.41 Fecal impaction; M41.9 Scoliosis, unspecified; N18.9 Chronic kidney disease, unspecified; Z20.822 Contact with and (suspected) exposure to COVID-19; I12.9 Hypertensive chronic kidney disease with stage 1 through stage 4 chronic kidney disease, or unspecified chronic kidney disease; Y93.89 Activity, other specified; Y92.89 Other specified places as the place of occurrence of the external cause; Y99.8 Other external cause status; Z59.0 Homelessness; Z78.1 Physical restraint status; Z79.01 Long term (current) use of anticoagulants; Z82.49 Family history of ischemic heart disease and other diseases of the circulatory system; Z91.19 Patient's noncompliance with other medical treatment and regimen
CPT/HCPCS: 36415; 36600; 70450-TC; 71045; 72125-TC; 76376; 76770; 80048; 80053; 80307; 81000; 82140; 82803-TC; 82962; 83735; 83880; 84100; 84443; 84478; 84484; 85007; 85025; 85027; 85610-TC; 85651-TC; 85730-TC; 86140; 87070-TC; 87081; 87205-TC; 90715; 92610-GN; 93005; 93306; 94002; 94003; 94640; 96365; 96375; 99285; G0482; J0330; J0360; J0610; J0696; J1030; J1265; J1630; J1644; J1650; J1815; J1940; J2060; J2270; J2543; J3475; J3480; J3490; J7050; J7613